=== PATIENT | female | born 1945 | race Caucasian/White ===

== ENCOUNTER → 2021-09-26 13:47 | Outpatient (CLI) | payer MEDICARE, OTHER, SELFPAY ==
--- NOTE | 2021-09-26 13:52 | DI.MG.S_ITS ---
BILATERAL DIGITAL DIAGNOSTIC MAMMOGRAM 3D/2D: 09/26/2021 CLINICAL: Bilateral breast pain. Comparison is made to exams dated: 08/03/2019 mammogram, 06/10/2018 mammogram, and 04/21/2017 mammogram - [facility]. The tissue of both breasts is predominantly fatty. No significant masses, calcifications, or other findings are seen in either breast. There has been no significant interval change. IMPRESSION: NEGATIVE There is no mammographic evidence of malignancy. A 1 year screening mammogram is recommended. This exam was interpreted at Station ID: [id number]. NOTE: For mammograms, a report in lay terms will be sent to the patient. Approximately 15% of breast malignancies will not be visualized mammographically. In the management of a palpable breast mass, a negative mammogram must not discourage biopsy of a clinically suspicious lesion. Electronically Signed By: Harish Cam M.D., jr/yari:09/26/2021 14:26:33 letter sent: Normal Exam ACR BI-RADS Category 1: Negative [id number]
== END ==
PROVIDERS: Referring Provider Student in an Organized Health Care Education/Training Program; Visit Provider Student in an Organized Health Care Education/Training Program
DX: N64.4 Mastodynia (principal)
CPT/HCPCS: 77066; G0279

== ENCOUNTER → 2022-03-18 07:14 | Outpatient (CLI) | payer MEDICARE, OTHER, SELFPAY ==
--- NOTE | 2022-03-18 | DI.RAD.S_ITS ---
PROCEDURE: FL BARIUM SWALLOW INDICATIONS: DYSPHAGIA COMPARISON: None. FINDINGS: Function: There are mild tertiary contraction waves in the distal esophagus. No elicited gastroesophageal reflux. There is normal transit of a calibrated barium tablet through the esophagus into the stomach. Swallowing reflex is normal. No laryngotracheal penetration or aspiration. No Zenker's diverticulum. Mild pooling noted in the right vallecula which is cleared with repeat swallows. Morphology: Air-contrast images demonstrate normal mucosal morphology. Single contrast views show no esophageal strictures, extrinsic mass effects, or diverticula. Limited images of the stomach demonstrate normal appearance. IMPRESSION: 1. Mild distal esophageal dysmotility. 2. No gastroesophageal reflux identified. 3. No esophageal mass or stricture. Dictated by: Nicolasa Mann MD, PhD on 03/18/2022 at 14:31 Approved by: Nicolasa Mann MD, PhD on 03/18/2022 at 14:33
== END ==
PROVIDERS: PCP Student in an Organized Health Care Education/Training Program; Referring Provider Student in an Organized Health Care Education/Training Program; Visit Provider Student in an Organized Health Care Education/Training Program
DX: R13.10 Dysphagia, unspecified (principal); K22.4 Dyskinesia of esophagus
CPT/HCPCS: 74220

== ENCOUNTER 2024-04-13 10:39 | Emergency (ER) | payer MEDICARE, OTHER, SELFPAY ==
[2024-04-13 10:43] VITALS: BP 155/72; PULSE 68; RESP 18; TEMP 36.3; O2SAT 98
--- NOTE | 2024-04-13 11:04 | EKG_ITS ---
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
[2024-04-13 11:09] LABS: Add Manual Diff / Slide Review NO; Basophils Absolute Auto 0 /uL (0-100); Basophils Percent Auto 0.7 % (0-2); Eosinophils Absolute Auto 100 /uL (0-450); Eosinophils Percent Auto 1.9 % (2-4); Hematocrit 34.8 % (36-46); Lymphocytes Absolute Auto 1600 /uL (1100-4500); Lymphocytes Percent Auto 25.4 % (25-40); Mean Corpuscular HGB Conc 34.5 % (30-36); Mean Corpuscular Hemoglobin 30.1 PG (26-34); Mean Corpuscular Volume 87.2 fL (80-100); Monocytes Absolute Auto 500 /uL (0-900); Monocytes Percent Auto 7.4 % (3-14); Neutrophils Absolute Auto 4000 /uL (1500-7000); Neutrophils Percent Auto 64.6 % (50-75); Platelet Count 261 X10^3/uL (150-400); Red Blood Cell Count 3.99 X10^6/uL (4.0-5.2); Red Cell Distribution Width 13.7 % (11.6-14.8); White Blood Cell Count 6.1 X10^3/uL (4.5-11.0)
[2024-04-13 11:27] LABS: Alanine Aminotransferase 15 IU/L (<35); Albumin 4.1 g/dL (3.5-5.0); Albumin Globulin Ratio 1.3 (1.0-2.8); Alkaline Phosphatase 100 U/L (38-126); Aspartate Aminotransferase 19 IU/L (14-36); BUN Creatinine Ratio 14.7 (6-22); Bilirubin Total 0.8 mg/dL (0.2-1.3); Blood Urea Nitrogen 11 mg/dL (7-17); Calcium 8.9 mg/dL (8.4-10.2); Carbon Dioxide 24 mmol/L (22-32); Chloride 104 mmol/L (98-107); Estimated Glomerular Filt Rate > 60 mL/min (>60); Globulin 3.1 g/dL (1.7-4.1); Glucose 184 mg/dL (80-110); HEMOLYSIS < 15 (0-50); Lipase 175 U/L (23-300); Potassium 4.1 mmol/L (3.4-5.1); Sodium 137 mmol/L (137-145); Total Protein 7.2 g/dL (6.3-8.2)
--- NOTE | 2024-04-13 12:53 | ED.ABDPAIN ---
HPI - Abdominal Pain <Jennifer Snyder PA-C - Last Filed: 04/13/24 14:42> General Chief Complaint: Abdominal Pain Stated Complaint: abd pain Time Seen by Provider: 04/13/24 12:52 Source: patient Mode of arrival: Ambulatory History of Present Illness HPI narrative: 78-year-old woman with history of compression fractures to spine, hysterectomy, cholecystectomy presents with concern for abdominal pain. Patient states for the past 6 weeks she has been having pains in her belly that are often a generalized ache in her low belly but she gets sharp pains up high. This has worsened over the past 3 days, generally she has been having pain mostly in the afternoons and getting worse into the evenings that is relieved with lying flat and ?stretching out her belly? but then the last 3 days her pain has been there in the morning when she wakes up and lasting all day long. She has noticed that she gets pain often after eating recently which is new for her and has been having nausea and reduced appetite. She is also noticed that she has been having some urgency with stools intermittently and sometimes feels she has to run to the bathroom-she has had very loose stools at times and a few weeks ago had ?watery stools?. She states sometimes she goes 4 days without a bowel movement and then after that she has a lot of loose stools. Her urgency with stools is not related to eating. It is also not related to her pains. Pain is not relieved with bowel movements. She describes currently a 7/10 pain but notes she has a very high pain tolerance. Her last colonoscopy was 10-12 years ago and she said there was a precancerous polyp found she believes she was recommended for a 10 year follow-up but has not had this done. She has tried Advil for pain at home which has helped some. Related Data Home Medications Medication Instructions Recorded Confirmed [DIABETES] ##0 03/27/17 [HIGH CHOLESTEROL ] ##0 03/27/17 [HTN MEDICATION] ##0 03/27/17 amitriptyline 25 mg tablet 25 mg PO HS ##0 03/27/17 gabapentin 300 mg capsule 300 mg PO TID ##0 03/27/17 (Neurontin) Previous Rx's Medication Instructions Recorded hydrocodone 5 mg-acetaminophen 325 0 tab PO Q6HP PRN #15 tabs 03/27/17 mg tablet ketorolac 10 mg tablet 10 mg PO Q6HP PRN #15 tabs 03/27/17 methocarbamol 500 mg tablet 500 mg PO QIDP PRN #14 tabs 03/27/17 cyclobenzaprine 10 mg tablet 10 mg PO Q8HP PRN #20 tabs 04/03/17 hydrocodone 5 mg-acetaminophen 325 1 - 2 tab PO Q6H PRN #15 tabs 04/03/17 mg tablet ([place]) ketorolac 10 mg tablet 10 mg PO Q8HP PRN #20 tabs 04/03/17 Allergies Allergy/AdvReac Type Severity Reaction Status Date / Time pregabalin [From LYRICA] Allergy Intermediate SWELLING Unverified 01/21/18 12:44 lisinopril [LISINOPRIL] AdvReac Intermediate COUGH Unverified 04/13/24 10:52 Review of Systems <Jennifer Snyder PA-C - Last Filed: 04/13/24 14:42> Review of Systems Narrative: See HPI Patient History <Jennifer Snyder PA-C - Last Filed: 04/13/24 14:42> Social History Smoking Status: Never smoker Smoking Status: Never smoker alcohol intake frequency: a few times a month Substance Use Type: does not use Exam <Jennifer Snyder PA-C - Last Filed: 04/13/24 14:42> Narrative Exam Narrative: GENERAL: [78] year old patient appears stated age. Well-developed patient, in mild distress. HEAD: Atraumatic. Normocephalic. EYES: Pupils equal round and reactive. Extraocular motions intact. No scleral icterus. No injection or drainage. ENT: Nose without bleeding, purulent drainage. Throat without erythema. Airway patent. NECK: Trachea midline. CARDIOVASCULAR: Regular rate and rhythm without murmurs, gallops, or rubs. RESPIRATORY: Clear to auscultation. Breath sounds equal bilaterally. No wheezes, rales, or rhonchi. GASTROINTESTINAL: Abdomen soft, there is epigastric tenderness and left upper quadrant tenderness there is mild generalized abdominal tenderness abdomen is nondistended, no CVA tenderness. EXTREMITIES: Moving all extremities, normal gait BACK: Nontender without deformity or crepitance. No flank tenderness. NEURO: AOx3. SKIN: No rash or erythema of visible areas Initial Vital Signs Initial Vital Signs: Vital Signs Temperature 97.3 F L 04/13/24 10:43 Pulse Rate 68 04/13/24 10:43 Respiratory Rate 18 04/13/24 10:43 Blood Pressure 155/72 H 04/13/24 10:43 Pulse Oximetry 98 04/13/24 10:43 Oxygen Delivery Method Room Air 04/13/24 10:43 <Nuria Zapata MD - Last Filed: 04/13/24 18:37> Initial Vital Signs Initial Vital Signs: Vital Signs Temperature 97.3 F L 04/13/24 10:43 Pulse Rate 68 04/13/24 10:43 Respiratory Rate 18 04/13/24 10:43 Blood Pressure 155/72 H 04/13/24 10:43 Pulse Oximetry 98 04/13/24 10:43 Oxygen Delivery Method Room Air 04/13/24 10:43 Course <Jennifer Snyder PA-C - Last Filed: 04/13/24 14:42> Orders Ordered: ED Orders 04/13/24 10:48 EKG-12 Lead Stat 04/13/24 11:00 Complete Blood Count AUTO DIFF Stat Comprehensive Metabolic Panel Stat Lipase Stat 04/13/24 14:00 CT abdomen pelvis w con Stat Discontinued Medications Sodium Chloride (Normal Saline 0.9%) 1,000 mls @ 1,000 mls/hr IV BOLUS ONE Stop: 04/13/24 14:25 Last Admin: 04/13/24 14:28 Dose: Not Given Documented By: SB Ondansetron HCl (Ondansetron 4 Mg/2 Ml Inj) 4 mg IV NOW PRN PRN Reason: Nausea And Vomiting Ondansetron HCl (Ondansetron 4 Mg Odt) 4 mg PO NOW PRN PRN Reason: Nausea And Vomiting Vital Signs Vital signs: Vital Signs - 8 hr 04/13/24 10:43 04/13/24 14:24 Temperature 97.3 F L Pulse Rate 68 66 Respiratory Rate 18 18 Blood Pressure 155/72 H 187/80 H Pulse Oximetry 98 98 Oxygen Delivery Method Room Air Room Air <Nuria Zapata MD - Last Filed: 04/13/24 18:37> Orders Ordered: ED Orders 04/13/24 10:48 EKG-12 Lead Stat 04/13/24 11:00 Complete Blood Count AUTO DIFF Stat Comprehensive Metabolic Panel Stat Lipase Stat 04/13/24 14:00 CT abdomen pelvis w con Stat Discontinued Medications Sodium Chloride (Normal Saline 0.9%) 1,000 mls @ 1,000 mls/hr IV BOLUS ONE Stop: 04/13/24 14:25 Last Admin: 04/13/24 14:28 Dose: Not Given Documented By: LACY Ondansetron HCl (Ondansetron 4 Mg/2 Ml Inj) 4 mg IV NOW PRN PRN Reason: Nausea And Vomiting Ondansetron HCl (Ondansetron 4 Mg Odt) 4 mg PO NOW PRN PRN Reason: Nausea And Vomiting Vital Signs Vital signs: Vital Signs - 8 hr 04/13/24 10:43 04/13/24 14:24 Temperature 97.3 F L Pulse Rate 68 66 Respiratory Rate 18 18 Blood Pressure 155/72 H 187/80 H Pulse Oximetry 98 98 Oxygen Delivery Method Room Air Room Air MDM - Abdominal Pain <Jennifer Snyder PA-C - Last Filed: 04/13/24 14:42> Differential Diagnosis Differential diagnosis: Likely abdominal pain, acute appendicitis, diverticulitis, pancreatitis, small bowel obstruction and other (CA, GERD) Medical Records Attestation: I reviewed the patient's medical records. Lab Data Attestation: I reviewed the patient's lab results. 04/13/24 11:00 04/13/24 11:00 Labs: Lab Results 04/13/24 Range/Units 11:00 WBC 6.1 (4.5-11.0) X10^3/uL RBC 3.99 L (4.0-5.2) X10^6/uL Hgb 12.0 (12.0-16.0) g/dL Hct 34.8 L (36-46) % MCV 87.2 (80-100) fL MCH 30.1 (26-34) PG MCHC 34.5 (30-36) % RDW 13.7 (11.6-14.8) % Plt Count 261 (150-400) X10^3/uL Neut % (Auto) 64.6 (50-75) % Lymph % (Auto) 25.4 (25-40) % [place] % (Auto) 7.4 (3-14) % Eos % (Auto) 1.9 L (2-4) % Baso % (Auto) 0.7 (0-2) % Neut # (Auto) 4000 (3612-1071) /uL Lymph # (Auto) 1600 (2255-3683) /uL [place] # (Auto) 500 (0-900) /uL Eos # (Auto) 100 (0-450) /uL Baso # (Auto) 0 (0-100) /uL Sodium 137 (137-145) mmol/L Potassium 4.1 (3.4-5.1) mmol/L Chloride 104 (98-107) mmol/L Carbon Dioxide 24 (22-32) mmol/L BUN 11 (7-17) mg/dL Creatinine 0.75 (0.52-1.04) mg/dL Estimated GFR > 60 (>60) mL/min BUN/Creatinine Ratio 14.7 (6-22) Glucose 184 H (80-110) mg/dL Calcium 8.9 (8.4-10.2) mg/dL Total Bilirubin 0.8 (0.2-1.3) mg/dL AST 19 (14-36) IU/L ALT 15 (<35) IU/L Alkaline Phosphatase 100 (38-126) U/L Total Protein 7.2 (6.3-8.2) g/dL Albumin 4.1 (3.5-5.0) g/dL Globulin 3.1 (1.7-4.1) g/dL Albumin/Globulin Ratio 1.3 (1.0-2.8) Lipase 175 (23-300) U/L Point of care testing: Urine Dip Bedside Urine Glucose Negative Bedside Urine Bilirubin - Negative Bedside Urine Ketone - Negative Urine Specific [place] 1.020 Bedside Urine Occult Blood - Negative Bedside Urine pH 5.5 Bedside Urine Protein - Negative Bedside Urine Urobilinogen - Negative Bedside Urine Nitrite - Negative Bedside Urine Leukocytes - Negative Esterase Imaging Data CT scan - abdomen/pelvis: My Impression: Agree with Radiology interpretation Radiologist's Impression: [address] [address] [address] Scan Report Signed Patient: Kylie Alonso MR#: [id number] : 1945 Acct:[id number] Age/Sex: 78 / F Date of Service: 04/13/24 Loc: ED Accession Number: [id number] Procedure: CT abdomen pelvis w con Ordering Provider: Jennifer Snyder P.A-C PROCEDURE: CT ABDOMEN PELVIS W CON INDICATIONS: low abd pain radiating/nausea/reduced appetite TECHNIQUE: After the administration of intravenous contrast, axial sections acquired from the lung bases to the pubic symphysis. Coronal and sagittal reformats were performed. For radiation dose reduction, the following was used: automated exposure control, adjustment of mA and/or kV according to patient size. COMPARISON: None. FINDINGS: Image quality: Diagnostic. Lower Chest: No significant findings. ABDOMEN: Liver: No solid mass. Gallbladder: Gallbladder is absent. Biliary ducts: No biliary dilation. Pancreas: No ductal dilation. Spleen: Size is within normal limits. Adrenal Glands: No adrenal nodules. Kidneys and Ureters: No hydronephrosis. No solid mass. No complex renal cystic lesion which requires follow up. Stomach and Bowel: Normal colonic caliber, without significant wall thickening. Normal appendix. Colonic diverticulosis without evidence of diverticulitis. Peritoneum: No abnormal intraperitoneal fluid. No free air. Ventral Wall: No significant ventral hernia. Abdominal Nodes: No retroperitoneal or mesenteric adenopathy by size criteria. Vessels: Aorta and inferior vena cava are normal in size. PELVIS: Pelvic Organs: Hysterectomy. Bladder: No bladder wall thickening, accounting for underdistention. Pelvic Nodes: No enlarged lymph nodes. Miscellaneous: No inguinal hernias are seen. Bones: No aggressive osseous abnormality . Degenerative disc disease of the lumbar spine. Kyphoplasty present at T10. Moderate to severe spinal canal narrowing at L4-5. IMPRESSION: No acute abnormality. Normal appendix. Colonic diverticulosis without evidence of diverticulitis. No nephrolithiasis. Moderate to severe spinal canal narrowing at L4-5 due to degenerative change. Dictated by: Live Howard M.D. on 04/13/2024 at 13:37 Approved by: Live Howard M.D. on 04/13/2024 at 13:42 ECG Data Interpretation: Sinus rhythm heart rate 70 right bundle branch block no ectopy or ST changes MDM Narrative Medical decision making narrative: This is a 78-year-old woman who has had previous cholecystectomy and hysterectomy with 6 weeks of generalized abdominal pains that has been worsening in the last 3 days that may be associated with eating and has also had some intermittent looser stools and urgency. She does have abdominal tenderness on exam over the pancreas and epigastrium. Her labs including lipase, liver enzymes and urine, are unremarkable, but CT scan is pursued for further evaluation given her 7/10 pain and worsening over the last 3 days. This shows no acute intra-abdominal surgical pathology or signs of infection she does have diverticulosis without diverticulitis. Patient did have an EKG performed in triage however no cardiac labs were obtained, based on her symptoms and history I think a cardiovascular etiology for her symptoms is very unlikely. Patient is advised to follow up closely with her primary care provider and consider seeing General surgery soon as an outpatient for further evaluation for possible colonoscopy or upper endoscopy. She will continue her PPI as prescribed. She is encouraged to keep a food diary as well. She is also advised to talk to her primary care provider about possibly obtaining a GI panel/stool studies as she was unable to provide a stool sample today in the ER for us and this is 1 potential cause for her symptoms. Patient declined pain medications or nausea medications in the emergency department today, she declines prescription for nausea medicine as she states she still has some at home from an knee surgery this winter and avoids taking meds in general if they are not prescribed/absolutely necessary. Patient was counseled to be cautious about using Advil and NSAIDs as this could irritate her stomach lining/esophagus. Return precautions provided, follow-up plan discussed, all questions answered. <Nuria Zapata MD - Last Filed: 04/13/24 18:37> Lab Data Labs: Lab Results 04/13/24 Range/Units 11:00 WBC 6.1 (4.5-11.0) X10^3/uL RBC 3.99 L (4.0-5.2) X10^6/uL Hgb 12.0 (12.0-16.0) g/dL Hct 34.8 L (36-46) % MCV 87.2 (80-100) fL MCH 30.1 (26-34) PG MCHC 34.5 (30-36) % RDW 13.7 (11.6-14.8) % Plt Count 261 (150-400) X10^3/uL Neut % (Auto) 64.6 (50-75) % Lymph % (Auto) 25.4 (25-40) % [place] % (Auto) 7.4 (3-14) % Eos % (Auto) 1.9 L (2-4) % Baso % (Auto) 0.7 (0-2) % Neut # (Auto) 4000 (3172-5938) /uL Lymph # (Auto) 1600 (0013-9893) /uL [place] # (Auto) 500 (0-900) /uL Eos # (Auto) 100 (0-450) /uL Baso # (Auto) 0 (0-100) /uL Sodium 137 (137-145) mmol/L Potassium 4.1 (3.4-5.1) mmol/L Chloride 104 (98-107) mmol/L Carbon Dioxide 24 (22-32) mmol/L BUN 11 (7-17) mg/dL Creatinine 0.75 (0.52-1.04) mg/dL Estimated GFR > 60 (>60) mL/min BUN/Creatinine Ratio 14.7 (6-22) Glucose 184 H (80-110) mg/dL Calcium 8.9 (8.4-10.2) mg/dL Total Bilirubin 0.8 (0.2-1.3) mg/dL AST 19 (14-36) IU/L ALT 15 (<35) IU/L Alkaline Phosphatase 100 (38-126) U/L Total Protein 7.2 (6.3-8.2) g/dL Albumin 4.1 (3.5-5.0) g/dL Globulin 3.1 (1.7-4.1) g/dL Albumin/Globulin Ratio 1.3 (1.0-2.8) Lipase 175 (23-300) U/L Point of care testing: Urine Dip Bedside Urine Glucose Negative Bedside Urine Bilirubin - Negative Bedside Urine Ketone - Negative Urine Specific [place] 1.020 Bedside Urine Occult Blood - Negative Bedside Urine pH 5.5 Bedside Urine Protein - Negative Bedside Urine Urobilinogen - Negative Bedside Urine Nitrite - Negative Bedside Urine Leukocytes - Negative Esterase Discharge Plan Departure Patient Disposition: Home Clinical Impression: Change in stool habits Abdominal pain Qualifiers: Abdominal location: generalized Qualified Code(s): R10.84 - Generalized abdominal pain Activity Restrictions/Additional Instructions: *You have been diagnosed with [abdominal pain, change in stool habits] *What to do: *Please continue to take your regular medications as directed. [ ] New medication prescriptions sent to your pharmacy: [ ] [ ] New medication written as a paper prescription [ X] No new medications given *Please follow up with your primary care provider in 2-3 days, call for an appointment. Let them know you were seen in the Emergency Department and that we ask that you be seen in follow up. We will electronically transmit a record of today's note if your PCP is in our system. We did labs today to evaluate your symptoms and your liver enzymes, pancreas lab, blood counts, urine labs were all looking good with no signs of infection or abnormality. We also did a CT scan to evaluate for possible causes of your pain this also looked good today you do have diverticulosis without diverticulitis (no infection or inflammation currently) but otherwise no definite cause for your symptoms. I would recommend you follow-up with your primary care provider as we discussed, and work on getting in to see General surgery possibly for a colonoscopy or upper scope depending on their recommendations. You may want to have a stool study done as well as you are unable to give a stool sample today in the ER and you had a change in your stool habits, it is possible that you have an infectious process or something in your stool that is causing your symptoms. Please be thoughtful about your diet and push fluids especially for the next 24-48 hours as you had a CT scan with contrast today which can be somewhat hard on the kidneys. I hope you feel better soon. *If you do not have a primary care provider please contact the [facility] Resource line at [phone]. They will ask some questions about your medical history and help get you set up with a doctor in the community. *Return to Emergency Department if you should have any new, worsening or concerning symptoms, such as [fever greater than 101 F, shaking chills, worsening pain, persistent vomiting or other bothersome symptoms] Prescriptions: No Action amitriptyline 25 MG tablet 25 mg PO HS Qty: 0 gabapentin [Neurontin] 300 MG capsule 300 mg PO TID Qty: 0 [DIABETES] Qty: 0 [HIGH CHOLESTEROL ] Qty: 0 [HTN MEDICATION] Qty: 0 methocarbamol 500 MG tablet 500 mg PO QIDP PRNQty: 14 0RF hydrocodone-acetaminophen 5 MG/325 MG tablet 0 tab PO Q6HP PRNQty: 15 0RF ketorolac 10 MG tablet 10 mg PO Q6HP PRNQty: 15 0RF cyclobenzaprine 10 MG tablet 10 mg PO Q8HP PRNQty: 20 0RF hydrocodone-acetaminophen [[place]] 5 MG/325 MG tablet 1 - 2 tab PO Q6H PRNQty: 15 0RF ketorolac 10 MG tablet 10 mg PO Q8HP PRNQty: 20 0RF Referrals: Chica Rae MD [Physician] - (abd pain 6 wk, worsening, normal labs /CT Hx precancer on colonoscopy 10-12 yr ago) Mercy Curtis PA-C [Primary Care Provider] - Stand Alone Forms: Patient Portal/API ED Sign-out <Nuria Zapata MD - Last Filed: 04/13/24 18:37> Cosign ED Attending Germaniaature Attestation: I was immediately available in the department for consultation throughout this patient's visit. Nuria Zapata MD
--- NOTE | 2024-04-13 14:00 | DI.CT.S_ITS ---
PROCEDURE: CT ABDOMEN PELVIS W CON INDICATIONS: low abd pain radiating/nausea/reduced appetite TECHNIQUE: After the administration of intravenous contrast, axial sections acquired from the lung bases to the pubic symphysis. Coronal and sagittal reformats were performed. For radiation dose reduction, the following was used: automated exposure control, adjustment of mA and/or kV according to patient size. COMPARISON: None. FINDINGS: Image quality: Diagnostic. Lower Chest: No significant findings. ABDOMEN: Liver: No solid mass. Gallbladder: Gallbladder is absent. Biliary ducts: No biliary dilation. Pancreas: No ductal dilation. Spleen: Size is within normal limits. Adrenal Glands: No adrenal nodules. Kidneys and Ureters: No hydronephrosis. No solid mass. No complex renal cystic lesion which requires follow up. Stomach and Bowel: Normal colonic caliber, without significant wall thickening. Normal appendix. Colonic diverticulosis without evidence of diverticulitis. Peritoneum: No abnormal intraperitoneal fluid. No free air. Ventral Wall: No significant ventral hernia. Abdominal Nodes: No retroperitoneal or mesenteric adenopathy by size criteria. Vessels: Aorta and inferior vena cava are normal in size. PELVIS: Pelvic Organs: Hysterectomy. Bladder: No bladder wall thickening, accounting for underdistention. Pelvic Nodes: No enlarged lymph nodes. Miscellaneous: No inguinal hernias are seen. Bones: No aggressive osseous abnormality . Degenerative disc disease of the lumbar spine. Kyphoplasty present at T10. Moderate to severe spinal canal narrowing at L4-5. IMPRESSION: No acute abnormality. Normal appendix. Colonic diverticulosis without evidence of diverticulitis. No nephrolithiasis. Moderate to severe spinal canal narrowing at L4-5 due to degenerative change. Dictated by: Live Howard M.D. on 04/13/2024 at 13:37 Approved by: Live Howard M.D. on 04/13/2024 at 13:42
[2024-04-13 14:24] VITALS: BP 187/80; PULSE 66; RESP 18; O2SAT 98
== END 2024-04-13 15:17 | disposition home or self-care (01) ==
PROVIDERS: Emergency Medicine; Emergency Provider Student in an Organized Health Care Education/Training Program; PCP Student in an Organized Health Care Education/Training Program
DX: R10.84 Generalized abdominal pain (principal); R19.4 Change in bowel habit
CPT/HCPCS: 36415; 74177; 80053; 81003; 83690; 85025; 93005; 99284; Q9967

== ENCOUNTER → 2024-05-11 12:51 | Outpatient (CLI) | payer MEDICARE, OTHER, SELFPAY | PROVIDERS: PCP Student in an Organized Health Care Education/Training Program; Referring Provider Physician Assistant; Visit Provider Physician Assistant | DX: R19.7 Diarrhea, unspecified (principal) | CPT/HCPCS: 82274; 87338 ==

== ENCOUNTER 2024-06-29 16:48 | Emergency (ER) | payer MEDICARE, OTHER, SELFPAY ==
[2024-06-29] VITALS (13 sets, daily range): BP systolic 186–236; BP diastolic 86–144; PULSE 78–96; RESP 16–23; TEMP 36.6; O2SAT 95–99; BMI 29.6
--- NOTE | 2024-06-29 17:03 | DI.RAD.S_ITS ---
PROCEDURE: XR CHEST 1V INDICATIONS: chest pain TECHNIQUE: One view of the chest was acquired. COMPARISON: None. FINDINGS: Surgical changes and devices: None. Lungs and pleura: Lungs are clear. No pleural effusions or pneumothorax. Peribronchial cuffing. Mediastinum: Mediastinal contours appear normal. Heart size is normal. Bones and chest wall: No suspicious bony lesions. Overlying soft tissues appear unremarkable. Vertebral augmentation. IMPRESSION: Peribronchial cuffing, typically indicating infectious or inflammatory bronchitis. Dictated by: Live Howard M.D. on 06/29/2024 at 17:32 Approved by: Live Howard M.D. on 06/29/2024 at 17:33
--- NOTE | 2024-06-29 17:03 | EKG_ITS ---
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
[2024-06-29 17:21] LABS: INR 0.9 (0.9-1.3); Prothrombin Time 10.8 SECONDS (9.4-12.5)
[2024-06-29 17:23] LABS: Add Manual Diff / Slide Review NO; Basophils Absolute Auto 100 /uL (0-100); Basophils Percent Auto 1.4 % (0-2); Eosinophils Absolute Auto 100 /uL (0-450); Eosinophils Percent Auto 1.4 % (2-4); Hematocrit 36.1 % (36-46); Hemoglobin 12.4 g/dL (12.0-16.0); Lymphocytes Absolute Auto 1900 /uL (1100-4500); Lymphocytes Percent Auto 30.4 % (25-40); Mean Corpuscular HGB Conc 34.4 % (30-36); Mean Corpuscular Hemoglobin 30.1 PG (26-34); Mean Corpuscular Volume 87.5 fL (80-100); Monocytes Absolute Auto 400 /uL (0-900); Monocytes Percent Auto 5.8 % (3-14); Neutrophils Absolute Auto 3800 /uL (1500-7000); Platelet Count 248 X10^3/uL (150-400); Red Blood Cell Count 4.13 X10^6/uL (4.0-5.2); Red Cell Distribution Width 13.4 % (11.6-14.8); White Blood Cell Count 6.3 X10^3/uL (4.5-11.0)
[2024-06-29 17:24] LABS: PTT Partial Thromboplastin Tim 28 SECONDS (25.1-36.5)
[2024-06-29 17:32] LABS: Alanine Aminotransferase 19 IU/L (<35); Albumin Globulin Ratio 1.3 (1.0-2.8); Alkaline Phosphatase 108 U/L (38-126); Aspartate Aminotransferase 22 IU/L (14-36); BUN Creatinine Ratio 12.5 (6-22); Bilirubin Total 0.6 mg/dL (0.2-1.3); Blood Urea Nitrogen 9 mg/dL (7-17); Calcium 9.2 mg/dL (8.4-10.2); Carbon Dioxide 26 mmol/L (22-32); Chloride 99 mmol/L (98-107); Creatine Kinase 53 U/L (30-135); Estimated Glomerular Filt Rate > 60 mL/min (>60); Globulin 3.1 g/dL (1.7-4.1); Glucose 233 mg/dL (80-110); HEMOLYSIS < 15 (0-50); Lipase 196 U/L (23-300); Magnesium 1.5 mg/dL (1.6-2.3); Potassium 3.6 mmol/L (3.4-5.1); Sodium 134 mmol/L (137-145); Total Protein 7.1 g/dL (6.3-8.2)
[2024-06-29 17:44] LABS: NT-proBNP (BNP-Adult 18+) < 20 pg/mL (<450); Troponin I < 0.012 ng/mL (0.01-0.034)
--- NOTE | 2024-06-29 17:58 | PC.NURSE ---
pt came to ED today because she has been experiencing HTN for the past month. Pt states that pcp changed her medication from losartan 50mg to valsartan 180mg approximately one month ago and he blood pressure has been high ever since. Pt states that losartan was no longer controlling HTN and pcp decided to change medications. C/o dizziness, lightheaded and weakness. Pt is a&ox4. Denies sob & cp.
--- NOTE | 2024-06-29 18:28 | ED_ITS ---
HPI - General Adult General Chief complaint: Hypertension Stated complaint: states high blood pressure Time Seen by Provider: 06/29/24 17:56 Source: patient Mode of arrival: Ambulatory History of Present Illness HPI narrative: 78-year-old female with history of upe-[id number]-ihwddpksl diabetes, hypertension presents by EMS from home for elevated blood pressure readings for the last several weeks. Patient states that she is on 160 mg daily of valsartan, but over the last several weeks she was not been able to get her blood pressure below 180 systolic. She states that she occasionally feels like her cheeks we will flush and her eyes burn. Today the patient's blood pressure was over systolic 200. She tried calling her doctor's office, but she was referred to the emergency department. Patient denies chest pain, shortness of breath, leg swelling, worst headache of life. Related Data Home Medications Medication Instructions Recorded Confirmed [DIABETES] ##0 03/27/17 [HIGH CHOLESTEROL ] ##0 03/27/17 [HTN MEDICATION] ##0 03/27/17 amitriptyline 25 mg tablet 25 mg PO HS ##0 03/27/17 gabapentin 300 mg capsule 300 mg PO TID ##0 03/27/17 (Neurontin) Previous Rx's Medication Instructions Recorded hydrocodone 5 mg-acetaminophen 325 0 tab PO Q6HP PRN #15 tabs 03/27/17 mg tablet ketorolac 10 mg tablet 10 mg PO Q6HP PRN #15 tabs 03/27/17 methocarbamol 500 mg tablet 500 mg PO QIDP PRN #14 tabs 03/27/17 cyclobenzaprine 10 mg tablet 10 mg PO Q8HP PRN #20 tabs 04/03/17 hydrocodone 5 mg-acetaminophen 325 1 - 2 tab PO Q6H PRN #15 tabs 04/03/17 mg tablet ([place]) ketorolac 10 mg tablet 10 mg PO Q8HP PRN #20 tabs 04/03/17 clonidine HCl 0.1 mg tablet 0.1 mg PO TID PRN hypertensive 06/29/24 emergency #30 tabs Allergies Allergy/AdvReac Type Severity Reaction Status Date / Time pregabalin [From LYRICA] Allergy Intermediate SWELLING Unverified 01/21/18 12:44 lisinopril [LISINOPRIL] AdvReac Intermediate COUGH Unverified 04/13/24 10:52 Patient History Social History Smoking Status: Never smoker Smoking Status: Never smoker alcohol intake frequency: a few times a month Substance Use Type: does not use Exam Initial Vital Signs Initial Vital Signs: Vital Signs Temperature 97.8 F 06/29/24 16:50 Pulse Rate 78 06/29/24 16:50 Respiratory Rate 18 06/29/24 16:50 Blood Pressure 229/102 H 06/29/24 16:50 Pulse Oximetry 98 06/29/24 16:50 Oxygen Delivery Method Room Air 06/29/24 16:50 Const: Awake, alert, no acute distress, nontoxic appearing Cardiac: regular rate, regular rhythm RESP: unlabored, clear bilaterally, no wheezing GI: Soft, nontender, nondistended, no rebound, no guarding MSK: Atraumatic, full range of motion, pulses equal Skin: Warm, Dry, intact, no rashes Neuro: AO x3, CN II-XII grossly intact, moves all extremities Course Orders Ordered: ED Orders 06/29/24 17:00 Complete Blood Count AUTO DIFF Stat Comprehensive Metabolic Panel Stat Lipase Stat Magnesium Stat NT-proBNP (BNP-Adult 18+) Stat PTT Partial Thromboplastin Aki Stat Prothrombin Time INR Stat Troponin & CK Cardiac Panel Stat 06/29/24 17:03 XR chest 1V Stat EKG-12 Lead Stat Discontinued Medications Clonidine HCl (Clonidine 0.1 Mg Tablet) 0.1 mg PO NOW ONE Stop: 06/29/24 19:04 Last Admin: 06/29/24 19:08 Dose: 0.1 mg Documented By: MPO Vital Signs Vital signs: Vital Signs - 8 hr 06/29/24 16:50 06/29/24 16:54 06/29/24 16:55 Temperature 97.8 F Pulse Rate 78 88 Respiratory Rate 18 Blood Pressure 229/102 H Pulse Oximetry 98 99 96 Oxygen Delivery Method Room Air 06/29/24 16:55 06/29/24 16:59 06/29/24 16:59 Temperature Pulse Rate 82 Respiratory Rate 16 Blood Pressure 229/102 H 225/98 H Pulse Oximetry 97 Oxygen Delivery Method 06/29/24 17:00 06/29/24 17:01 06/29/24 17:01 Temperature Pulse Rate 84 85 Respiratory Rate 20 19 Blood Pressure 228/107 H Pulse Oximetry 97 98 Oxygen Delivery Method 06/29/24 17:30 06/29/24 17:31 06/29/24 17:31 Temperature Pulse Rate 88 90 Respiratory Rate 22 23 Blood Pressure 236/103 H Pulse Oximetry 97 95 Oxygen Delivery Method 06/29/24 17:55 06/29/24 17:55 06/29/24 18:00 Temperature Pulse Rate 94 H Respiratory Rate 23 Blood Pressure 212/144 H 200/95 H Pulse Oximetry 98 Oxygen Delivery Method 06/29/24 18:00 06/29/24 18:30 06/29/24 18:30 Temperature Pulse Rate 96 H 94 H Respiratory Rate 20 20 Blood Pressure 210/95 H Pulse Oximetry 95 95 Oxygen Delivery Method 06/29/24 19:00 06/29/24 19:00 06/29/24 19:08 Temperature Pulse Rate 90 94 H Respiratory Rate 18 Blood Pressure 186/86 H 186/86 H Pulse Oximetry 96 Oxygen Delivery Method Medical Decision Making Lab Data 06/29/24 17:00 06/29/24 17:00 Labs: Lab Results 06/29/24 Range/Units 17:00 WBC 6.3 (4.5-11.0) X10^3/uL RBC 4.13 (4.0-5.2) X10^6/uL Hgb 12.4 (12.0-16.0) g/dL Hct 36.1 (36-46) % MCV 87.5 (80-100) fL MCH 30.1 (26-34) PG MCHC 34.4 (30-36) % RDW 13.4 (11.6-14.8) % Plt Count 248 (150-400) X10^3/uL Neut % (Auto) 61.0 (50-75) % Lymph % (Auto) 30.4 (25-40) % [place] % (Auto) 5.8 (3-14) % Eos % (Auto) 1.4 L (2-4) % Baso % (Auto) 1.4 (0-2) % Neut # (Auto) 3800 (3419-5106) /uL Lymph # (Auto) 1900 (8003-8072) /uL [place] # (Auto) 400 (0-900) /uL Eos # (Auto) 100 (0-450) /uL Baso # (Auto) 100 (0-100) /uL PT 10.8 (9.4-12.5) SECONDS INR 0.9 (0.9-1.3) APTT 28 (25.1-36.5) SECONDS Sodium 134 L (137-145) mmol/L Potassium 3.6 (3.4-5.1) mmol/L Chloride 99 (98-107) mmol/L Carbon Dioxide 26 (22-32) mmol/L BUN 9 (7-17) mg/dL Creatinine 0.72 (0.52-1.04) mg/dL Estimated GFR > 60 (>60) mL/min BUN/Creatinine Ratio 12.5 (6-22) Glucose 233 H (80-110) mg/dL Calcium 9.2 (8.4-10.2) mg/dL Magnesium 1.5 L (1.6-2.3) mg/dL Total Bilirubin 0.6 (0.2-1.3) mg/dL AST 22 (14-36) IU/L ALT 19 (<35) IU/L Alkaline Phosphatase 108 (38-126) U/L Total Creatine Kinase 53 (30-135) U/L Troponin I < 0.012 (0.01-0.034) ng/mL NT-Pro-B Natriuret Pep < 20 (<450) pg/mL Total Protein 7.1 (6.3-8.2) g/dL Albumin 4.0 (3.5-5.0) g/dL Globulin 3.1 (1.7-4.1) g/dL Albumin/Globulin Ratio 1.3 (1.0-2.8) Lipase 196 (23-300) U/L Imaging Data Chest x-ray: Radiologist's Impression: PROCEDURE: XR CHEST 1V INDICATIONS: chest pain TECHNIQUE: One view of the chest was acquired. COMPARISON: None. FINDINGS: Surgical changes and devices: None. Lungs and pleura: Lungs are clear. No pleural effusions or pneumothorax. Peribronchial cuffing. Mediastinum: Mediastinal contours appear normal. Heart size is normal. Bones and chest wall: No suspicious bony lesions. Overlying soft tissues appear unremarkable. Vertebral augmentation. IMPRESSION: Peribronchial cuffing, typically indicating infectious or inflammatory bronchitis. Dictated by: Live Howard M.D. on 06/29/2024 at 17:32 Approved by: Live Howard M.D. on 06/29/2024 at 17:33 ECG Data Interpretation: Normal sinus rhythm at 89 beats per minute. Right bundle-branch block, normal IN, no ST T wave changes MDM Narrative Medical decision making narrative: Asymptomatic hypertension. EKG normal sinus rhythm, right bundle-branch block, no ischemic findings. Patient states that her right bundle brittny block is a known finding to her and she has previously seen cardiology in her hometown in [place]. Physical exam is unremarkable. Laboratory work ordered in triage reviewed, mildly elevated blood glucose, however no signs of end-organ damage. Patient states that she did have of the nail shake earlier in the day which is likely why she has an elevated glucose reading. Plan to increase patient's valsartan from once daily to twice daily. She was also given a as needed clonidine prescription if she can not get her blood pressure down. Signs and symptoms to look out for to return to the emergency department discussed with the patient and her daughter at bedside. Discharge Plan Departure Patient Disposition: Home Clinical Impression: Hypertension Instructions: DI for High Blood Pressure Activity Restrictions/Additional Instructions: Your blood sugar today was 212, your other laboratory work today is normal. Increase your valsartan to 160 mg twice daily. In addition, and ?as needed? medication has been sent to your pharmacy. You may take this up to 3 times daily if your blood pressure is persistently over 180 systolic. Make sure that you follow up with your primary care doctor. Prescriptions: New clonidine HCl 0.1 mg tablet 0.1 mg PO TID PRN (Reason: hypertensive emergency) Qty: 30 0RF No Action amitriptyline 25 MG tablet 25 mg PO HS Qty: 0 gabapentin [Neurontin] 300 MG capsule 300 mg PO TID Qty: 0 [DIABETES] Qty: 0 [HIGH CHOLESTEROL ] Qty: 0 [HTN MEDICATION] Qty: 0 methocarbamol 500 MG tablet 500 mg PO QIDP PRNQty: 14 0RF hydrocodone-acetaminophen 5 MG/325 MG tablet 0 tab PO Q6HP PRNQty: 15 0RF ketorolac 10 MG tablet 10 mg PO Q6HP PRNQty: 15 0RF cyclobenzaprine 10 MG tablet 10 mg PO Q8HP PRNQty: 20 0RF hydrocodone-acetaminophen [[place]] 5 MG/325 MG tablet 1 - 2 tab PO Q6H PRNQty: 15 0RF ketorolac 10 MG tablet 10 mg PO Q8HP PRNQty: 20 0RF Referrals: Mercy Curits PA-C [Primary Care Provider] - Stand Alone Forms: Patient Portal/API
[2024-06-29] MEDS: cloNIDine 0.1 MG TABLET PO (19:08)
== END 2024-06-29 19:15 | disposition home or self-care (01) ==
PROVIDERS: Emergency Medicine; Emergency Provider Emergency Medicine; PCP Student in an Organized Health Care Education/Training Program
DX: I10 Essential (primary) hypertension (principal); R07.9 Chest pain, unspecified; I45.10 Unspecified right bundle-branch block
CPT/HCPCS: 36415; 71045; 80053; 82550; 83690; 83735; 83880; 84484; 85025; 85610; 85730; 93005; 99284

== ENCOUNTER → 2025-04-20 13:40 | Outpatient (CLI) | payer MEDICARE, OTHER, SELFPAY ==
--- NOTE | 2025-04-20 14:07 | EKG_ITS ---
[address] [address] Test Date: 2025-04-20 Pat Name: Kylie Alonso Department: Room: Gender: Female Nurse Esthetician: KATHIE : 1945 Requested By: Order Number: [id number] Reading MD: Anthony Correa MD Measurements Intervals [place] Rate: 60 P: 22 MS: 194 QRS: -2 QRSD: 140 T: 13 QT: 464 QTc: 464 Interpretive Statements Normal sinus rhythm Right bundle branch block NO SIGNIFICANT CHANGE FROM PRIOR TRACING Electronically Signed On 04-21-2025 10:48:53 PDT by Anthony Correa MD
[2025-04-20 14:46] LABS: Add Manual Diff / Slide Review NO; Hematocrit 32.3 % (36-46); Hemoglobin 11.4 g/dL (12.0-16.0); Lymphocytes Absolute Auto 2000 /uL (1100-4500); Mean Corpuscular HGB Conc 35.4 % (30-36); Mean Corpuscular Hemoglobin 30.6 PG (26-34); Mean Corpuscular Volume 86.6 fL (80-100); Platelet Count 300 X10^3/uL (150-400)
[2025-04-20 14:48] LABS: Appearance Urine UA CLEAR; Bilirubin Urine UA NEGATIVE (NEGATIVE); Color Urine UA YELLOW; Glucose Urine UA NEGATIVE (Negative); Ketones Urine UA TRACE (NEGATIVE); Leukocyte Esterase Urine UA TRACE (NEGATIVE); Nitrite Urine UA NEGATIVE (Negative); Occult Blood Urine UA NEGATIVE (Negative); Protein Urine UA NEGATIVE (Negative); Specific Gravity Urine UA 1.015 (1.000-1.035); Urobilinogen Urine UA 0.2 E.U./dL (0.2)
[2025-04-20 14:54] LABS: Hemoglobin A1C% w Est Avg Glu 7.4 % (4.0-6.0); pH Urine UA 5.5 (4.5-8.0)
[2025-04-20 15:10] LABS: Culture Indicated Urine Specimen Cultured
[2025-04-20 15:28] LABS: Blood Urea Nitrogen 14 mg/dL (7-17); Calcium 9.6 mg/dL (8.4-10.2); Carbon Dioxide 28 mmol/L (22-32); Chloride 91 mmol/L (98-107); Estimated Glomerular Filt Rate 43 mL/min (>60); Glucose 126 mg/dL (70-99); HEMOLYSIS < 15 (0-50); Potassium 4.0 mmol/L (3.4-5.1); Sodium 130 mmol/L (137-145)
== END ==
PROVIDERS: PCP Student in an Organized Health Care Education/Training Program; Referring Provider Orthopaedic Surgery; Visit Provider Orthopaedic Surgery
DX: Z01.812 Encounter for preprocedural laboratory examination (principal); N39.0 Urinary tract infection, site not specified; R73.9 Hyperglycemia, unspecified; Z01.818 Encounter for other preprocedural examination
CPT/HCPCS: 36415; 80048; 81001; 83036; 85025; 87086; 93005

== ENCOUNTER 2025-05-03 13:42 | Inpatient (IN) | payer MEDICARE, OTHER, SELFPAY ==
[2025-05-03] VITALS (33 sets, daily range): BP systolic 137–200; BP diastolic 68–116; PULSE 63–76; RESP 16–18; TEMP 36.6–36.9; O2SAT 95–100; BMI 29.7
[2025-05-03 14:33] LABS: Alanine Aminotransferase 18 IU/L (<35); Albumin 4.4 g/dL (3.5-5.0); Albumin Globulin Ratio 1.5 (1.0-2.8); Alkaline Phosphatase 82 U/L (38-126); Blood Urea Nitrogen 17 mg/dL (7-17); Calcium 9.3 mg/dL (8.4-10.2); Carbon Dioxide 27 mmol/L (22-32); Chloride 87 mmol/L (98-107); Estimated Glomerular Filt Rate 52 mL/min (>60); Globulin 3.0 g/dL (1.7-4.1); Glucose 180 mg/dL (70-99); HEMOLYSIS < 15 (0-50); Potassium 4.0 mmol/L (3.4-5.1); Sodium 123 mmol/L (137-145); Total Protein 7.4 g/dL (6.3-8.2)
--- NOTE | 2025-05-03 18:13 | ED.RECABL ---
HPI - Recheck/Abnormal Lab/Rx General Chief Complaint: Recheck/Abnormal Lab/Rx Stated Complaint: Low Sodium Sent from PCP Time Seen by Provider: 05/03/25 18:13 Source: patient Mode of arrival: Ambulatory History of Present Illness HPI narrative: Patient is a 79-year-old female with a past medical history diabetes, hypertension, comes into the ED from home for evaluation of abnormal labs, patient states that she had lab work performed yesterday and was told that her sodium was 125. To note that patient also has been complaining of some low blood pressure, dizziness, nausea and generalized fatigue over the past week. Has had diarrhea associated with this but no vomiting. She denies any actual other symptoms such as headache visual disturbances chest pain shortness breath fever chills abdominal pain or any other GI/ symptoms at this time. Related Data Home Medications ?Medication ?Instructions ?Recorded ?Confirmed [DIABETES] ##0 03/27/17 [HIGH CHOLESTEROL ] ##0 03/27/17 [HTN MEDICATION] ##0 03/27/17 amitriptyline 25 mg tablet 25 mg PO HS ##0 03/27/17 gabapentin 300 mg capsule 300 mg PO TID ##0 03/27/17 (Neurontin) Previous Rx's ?Medication ?Instructions ?Recorded hydrocodone 5 mg-acetaminophen 325 0 tab PO Q6HP PRN #15 tabs 03/27/17 mg tablet ketorolac 10 mg tablet 10 mg PO Q6HP PRN #15 tabs 03/27/17 methocarbamol 500 mg tablet 500 mg PO QIDP PRN #14 tabs 03/27/17 cyclobenzaprine 10 mg tablet 10 mg PO Q8HP PRN #20 tabs 04/03/17 hydrocodone 5 mg-acetaminophen 325 1 - 2 tab PO Q6H PRN #15 tabs 04/03/17 mg tablet ([place]) ketorolac 10 mg tablet 10 mg PO Q8HP PRN #20 tabs 04/03/17 clonidine HCl 0.1 mg tablet 0.1 mg PO TID PRN hypertensive 06/29/24 emergency #30 tabs Allergies Allergy/AdvReac Type Severity Reaction Status Date / Time pregabalin (From LYRICA) Allergy Intermediate SWELLING Unverified 01/21/18 12:44 lisinopril (LISINOPRIL) AdvReac Intermediate COUGH Unverified 04/13/24 10:52 Review of Systems Review of Systems Narrative: General: Positive generalized fatigue Denies fever, chills, weight loss HEENT: Denies headache, eye drainage, eye irritation, head trauma, sore throat, voice change Cardiovascular: Denies any chest pain, palpitations, tachycardia Respiratory: Denies any shortness of breath, cough, wheeze, stridor GI/: Denies any abdominal pain, nausea, vomiting, diarrhea, bright red blood per rectum, melanotic stools, urinary frequency, urinary retention, dysuria, hematuria MSK: Denies any joint pain, muscle pains, swelling Skin: Denies any rashes, lesions, discoloration Neuro: Positive dizziness, Denies any headache, lightheadedness, fainting, weakness Psych: Denies SI/HI Patient History Social History Smoking Status: Never smoker Smoking Status: Never smoker alcohol intake frequency: a few times a month Exam Initial Vital Signs Initial Vital Signs: Vital Signs Temperature 98.4 F 05/03/25 13:46 Pulse Rate 65 05/03/25 13:46 Respiratory Rate 18 05/03/25 13:46 Blood Pressure 163/74 H 05/03/25 13:46 Pulse Oximetry 97 05/03/25 13:46 Oxygen Delivery Method Room Air 05/03/25 13:46 Course Orders Ordered: ED Orders 05/03/25 13:55 Sodium Urine Random Stat 05/03/25 14:08 CBC Auto Diff [Complete Blood Count AUTO DIFF] Stat CMP [Comprehensive Metabolic Panel] Stat Lipase Stat MAG [Magnesium] Stat PHOS [Phosphorous] Stat TSH [Thyroid Stimulating Hormone] Stat 05/03/25 18:14 CXR [XR chest 1V] Stat 05/03/25 18:15 EKG-12 Lead Stat 05/03/25 18:40 Urinalysis and Microscopic Stat 05/03/25 21:38 CMP [Comprehensive Metabolic Panel] Stat Discontinued Medications Sodium Chloride (Normal Saline 0.9%) 1,000 mls @ 1,000 mls/hr IV BOLUS ONE Stop: 05/03/25 19:13 Last Infusion: 05/03/25 20:01 Dose: Infused Documented By: Admin: 05/03/25 18:56 Dose: 1,000 mls/hr Documented By: DORON Vital Signs Vital signs: Vital Signs - 8 hr 05/03/25 13:46 05/03/25 15:37 05/03/25 15:38 Temperature 98.4 F Pulse Rate 65 Respiratory Rate 18 Blood Pressure 163/74 H 137/71 Pulse Oximetry 97 98 Oxygen Delivery Method Room Air 05/03/25 15:38 05/03/25 15:40 05/03/25 15:40 Temperature Pulse Rate 65 66 Respiratory Rate Blood Pressure 138/75 Pulse Oximetry 97 98 Oxygen Delivery Method 05/03/25 16:00 05/03/25 16:01 05/03/25 16:01 Temperature Pulse Rate 64 63 Respiratory Rate Blood Pressure 177/79 H Pulse Oximetry 99 99 Oxygen Delivery Method 05/03/25 16:21 05/03/25 16:21 05/03/25 16:30 Temperature Pulse Rate 69 71 Respiratory Rate Blood Pressure 159/116 H Pulse Oximetry 98 97 Oxygen Delivery Method 05/03/25 16:41 05/03/25 16:41 05/03/25 17:00 Temperature Pulse Rate 69 Respiratory Rate Blood Pressure 151/68 H 162/77 H Pulse Oximetry 97 Oxygen Delivery Method 05/03/25 17:00 05/03/25 17:20 05/03/25 17:20 Temperature Pulse Rate 67 64 Respiratory Rate Blood Pressure 158/77 H Pulse Oximetry 99 100 Oxygen Delivery Method 05/03/25 17:30 05/03/25 17:40 05/03/25 17:40 Temperature Pulse Rate 63 64 Respiratory Rate Blood Pressure 148/70 H Pulse Oximetry 100 98 Oxygen Delivery Method 05/03/25 18:00 05/03/25 18:00 05/03/25 18:21 Temperature Pulse Rate 67 Respiratory Rate Blood Pressure 161/75 H 154/84 H Pulse Oximetry 98 Oxygen Delivery Method 05/03/25 18:21 05/03/25 18:30 05/03/25 18:40 Temperature Pulse Rate 66 68 Respiratory Rate Blood Pressure 168/81 H Pulse Oximetry 98 99 Oxygen Delivery Method 05/03/25 18:40 05/03/25 19:00 05/03/25 19:00 Temperature Pulse Rate 65 68 Respiratory Rate Blood Pressure 183/87 H Pulse Oximetry 100 98 Oxygen Delivery Method 05/03/25 19:21 05/03/25 19:21 05/03/25 19:30 Temperature Pulse Rate 71 71 Respiratory Rate Blood Pressure 196/83 H Pulse Oximetry 98 99 Oxygen Delivery Method 05/03/25 19:41 05/03/25 19:41 05/03/25 20:06 Temperature Pulse Rate 67 76 Respiratory Rate Blood Pressure 200/86 H Pulse Oximetry 98 95 Oxygen Delivery Method 05/03/25 20:07 05/03/25 20:07 05/03/25 20:20 Temperature Pulse Rate 76 Respiratory Rate Blood Pressure 191/88 H 197/87 H Pulse Oximetry 96 Oxygen Delivery Method 05/03/25 20:20 05/03/25 20:30 05/03/25 20:45 Temperature Pulse Rate 65 64 Respiratory Rate Blood Pressure 160/76 H Pulse Oximetry 99 99 Oxygen Delivery Method 05/03/25 20:45 05/03/25 21:00 05/03/25 21:00 Temperature Pulse Rate 69 64 Respiratory Rate Blood Pressure 158/77 H Pulse Oximetry 99 99 Oxygen Delivery Method MDM - Recheck/Abnormal Lab/Rx Lab Data 05/03/25 14:08 05/03/25 14:08 Labs: Lab Results 05/03/25 05/03/25 Range/Units 13:55 14:08 WBC 6.2 (4.5-11.0) X10^3/uL RBC 3.80 L (4.0-5.2) X10^6/uL Hgb 11.6 L (12.0-16.0) g/dL Hct 32.6 L (36-46) % MCV 85.8 (80-100) fL MCH 30.5 (26-34) PG MCHC 35.6 (30-36) % RDW 12.8 (11.6-14.8) % Plt Count 292 (150-400) X10^3/uL Neut % (Auto) 66.9 (50-75) % Lymph % (Auto) 22.8 L (25-40) % [place] % (Auto) 8.6 (3-14) % Eos % (Auto) 1.1 L (2-4) % Baso % (Auto) 0.6 (0-2) % Neut # (Auto) 4100 (2254-2016) /uL Lymph # (Auto) 1400 (9940-8987) /uL [place] # (Auto) 500 (0-900) /uL Eos # (Auto) 100 (0-450) /uL Baso # (Auto) 0 (0-100) /uL Sodium 123 L (137-145) mmol/L Potassium 4.0 (3.4-5.1) mmol/L Chloride 87 L (98-107) mmol/L Carbon Dioxide 27 (22-32) mmol/L BUN 17 (7-17) mg/dL Creatinine 1.08 H (0.52-1.04) mg/dL Estimated GFR 52 L (>60) mL/min BUN/Creatinine Ratio 15.7 (6-22) Glucose 180 H (70-99) mg/dL Calcium 9.3 (8.4-10.2) mg/dL Phosphorus 4.0 (2.8-4.1) mg/dL Magnesium 1.3 L (1.6-2.3) mg/dL Total Bilirubin 0.5 (0.2-1.3) mg/dL AST 21 (14-36) IU/L ALT 18 (<35) IU/L Alkaline Phosphatase 82 (38-126) U/L Total Protein 7.4 (6.3-8.2) g/dL Albumin 4.4 (3.5-5.0) g/dL Globulin 3.0 (1.7-4.1) g/dL Albumin/Globulin Ratio 1.5 (1.0-2.8) Lipase 1001 H (23-300) U/L TSH 1.28 (0.47-4.68) uIU/mL Ur Random Sodium 46 (30-90) mmol/L Imaging Data Chest x-ray: Radiologist's Impression: [address] [address] XRay Report Signed Patient: Kylie Alonso MR#: [id number] : 1945 Acct:[id number] Age/Sex: 79 / F Date of Service: 05/03/25 Loc: ED Accession Number: [id number] Procedure: XR chest 1V Ordering Provider: Rosendo Harper D.O. PROCEDURE: XR CHEST 1V INDICATIONS: dizzy TECHNIQUE: One view of the chest was acquired. COMPARISON: [facility], , XR CHEST 1V, 06/29/2024, 17:08. FINDINGS: Surgical changes and devices: None. Lungs and pleura: Lungs are clear. No pleural effusions or pneumothorax. Mediastinum: Mediastinal contours appear normal. Heart size is normal. Bones and chest wall: No suspicious bony lesions. Overlying soft tissues appear unremarkable. IMPRESSION: No acute pulmonary process. MDM Narrative Medical decision making narrative: Patient is a 79-year-old female with a past medical history of hypertension, hyperlipidemia, diabetes, comes into the ED from home for evaluation of multiple complaints. She states that over the past week she has been feeling generalized fatigue dizziness nausea, she states that she had her labs drawn yesterday for preop for a left knee repair, she states that she was called by her physician that it was low in the 125 and she needed it come into the ED. she does state that she has been having diarrhea over the past week but this has since resolved not complaining of any abdominal pain, she states that she was taken off the clonidine today by her primary care doctor due to the fact that they believe this is the cause of her hyponatremia. Otherwise patient not complaining of any other symptoms. Here patients lab work not consistent with a leukocytosis, sodium was 123 here, creatinine 1.08, GFR 52, random urine sodium 46, chest x-ray without any acute cardiopulmonary abnormality. Patient without any leukocytosis, magnesium was slightly decreased at 1.3, we will replete here, lipase was also incidentally elevated at 1001 however patient is not having any abdominal pain nausea and vomiting at this time, patient is able to tolerate p.o. liquids and solids, however given patient with symptomatic hyponatremia at 123, patient will be admitted to the hospital for electrolyte monitoring repletion call placed out to hospitalist for admission The patient's management plan was discussed Dr. Barboza, who agrees to admit the patient to their service and assumes care of this patient at this time. Full admission orders will be placed by the primary team. Discharge Plan Departure Patient Disposition: Admitted As Inpatient Clinical Impression: Acute hyponatremia, Hypomagnesemia
--- NOTE | 2025-05-03 18:14 | DI.RAD.S_ITS ---
PROCEDURE: XR CHEST 1V INDICATIONS: dizzy TECHNIQUE: One view of the chest was acquired. COMPARISON: [facility], CR, XR CHEST 1V, 06/29/2024, 17:08. FINDINGS: Surgical changes and devices: None. Lungs and pleura: Lungs are clear. No pleural effusions or pneumothorax. Mediastinum: Mediastinal contours appear normal. Heart size is normal. Bones and chest wall: No suspicious bony lesions. Overlying soft tissues appear unremarkable. IMPRESSION: No acute pulmonary process. Dictated by: Nona Tucker M.D. on 05/03/2025 at 18:42 Approved by: Nona Tucker M.D. on 05/03/2025 at 18:42
[2025-05-03] MEDS: SODIUM CHLORIDE 0.9% 1,000 ML 1000 ML IV (18:56)
--- NOTE | 2025-05-03 19:00 | EKG_ITS ---
[place] [address] [address] [address] Test Date: 2025-05-03 Pat Name: Kylie Alonso Department: Room: Gender: Female Well Shooter: RAGHU : 1945 Requested By: Order Number: [id number] Reading MD: Robbin Ku Measurements Intervals [place] Rate: 66 P: 40 IA: 194 QRS: -14 QRSD: 134 T: 8 QT: 464 QTc: 486 Interpretive Statements Normal sinus rhythm Right bundle branch block Electronically Signed On 05-04-2025 15:05:30 PDT by Robbin Ku
[2025-05-03 20:48] LABS: Add Manual Diff / Slide Review NO; Hematocrit 32.6 % (36-46); Hemoglobin 11.6 g/dL (12.0-16.0); Lymphocytes Absolute Auto 1400 /uL (1100-4500); Mean Corpuscular HGB Conc 35.6 % (30-36); Mean Corpuscular Hemoglobin 30.5 PG (26-34); Mean Corpuscular Volume 85.8 fL (80-100); Platelet Count 292 X10^3/uL (150-400)
[2025-05-03 20:53] LABS: Lipase 1001 U/L (23-300); Magnesium 1.3 mg/dL (1.6-2.3)
[2025-05-03 20:54] LABS: Phosphorous 4.0 mg/dL (2.8-4.1)
[2025-05-03 21:25] LABS: Thyroid Stimulating Hormone 1.28 uIU/mL (0.47-4.68)
--- NOTE | 2025-05-03 21:46 | ED_ITS ---
HPI - Recheck/Abnormal Lab/Rx General Chief Complaint: Recheck/Abnormal Lab/Rx Stated Complaint: Low Sodium Sent from PCP Time Seen by Provider: 05/03/25 18:13 Source: patient Mode of arrival: Ambulatory Related Data Home Medications ?Medication ?Instructions ?Recorded ?Confirmed [DIABETES] ##0 03/27/17 [HIGH CHOLESTEROL ] ##0 03/27/17 [HTN MEDICATION] ##0 03/27/17 amitriptyline 25 mg tablet 25 mg PO HS ##0 03/27/17 gabapentin 300 mg capsule 300 mg PO TID ##0 03/27/17 (Neurontin) Previous Rx's ?Medication ?Instructions ?Recorded hydrocodone 5 mg-acetaminophen 325 0 tab PO Q6HP PRN # 15 tabs 03/27/17 mg tablet ketorolac 10 mg tablet 10 mg PO Q6HP PRN #15 tabs 0 03/27/17 methocarbamol 500 mg tablet 500 mg PO QIDP PRN #14 tab s 03/27/17 cyclobenzaprine 10 mg tablet 10 mg PO Q8HP PRN #20 tab s 04/03/17 hydrocodone 5 mg-acetaminophen 325 1 - [address] N #15 tabs 04/03/17 mg tablet ([place]) ketorolac 10 mg tablet 10 mg PO Q8HP PRN #20 tabs 0 04/03/17 clonidine HCl 0.1 mg tablet 0.1 mg PO TID PRN hyperten sive 06/29/24 emergency #30 tabs Allergies Allergy/AdvReac Type Severity Reaction Status Date / Time pregabalin (From LYRICA) Allergy Intermediate SWELLING Unverified 01/21/18 12:44 lisinopril (LISINOPRIL) AdvReac Intermediate COUGH Unverified 04/13/24 10:52 Review of Systems Review of Systems Narrative: As per HPI. Rest of 10-system review negative. Patient History Social History Smoking Status: Never smoker Smoking Status: Never smoker alcohol intake frequency: a few times a month Exam Initial Vital Signs Initial Vital Signs: Vital Signs Temperature 98.4 F 05/03/25 13:46 Pulse Rate 65 05/03/25 13:46 Respiratory Rate 18 05/03/25 13:46 Blood Pressure 163/74 H 05/03/25 13:46 Pulse Oximetry 97 05/03/25 13:46 Oxygen Delivery Method Room Air 05/03/25 13:46 Patient was evaluated entirely through 2-way audio/video telemedicine with RN assistance in exam. Physician was not present at beside in person at any time for this evaluation. Consent for telemedicine obviously obtained from patient. Course Orders Ordered: ED Orders 05/03/25 13:55 Sodium Urine Random Stat 05/03/25 14:08 CBC Auto Diff [Complete Blood Count AUTO DIFF] Stat CMP [Comprehensive Metabolic Panel] Stat Lipase Stat MAG [Magnesium] Stat PHOS [Phosphorous] Stat TSH [Thyroid Stimulating Hormone] Stat 05/03/25 18:14 CXR [XR chest 1V] Stat 05/03/25 18:15 EKG-12 Lead Stat 05/03/25 18:40 Urinalysis and Microscopic Stat 05/03/25 21:38 CMP [Comprehensive Metabolic Panel] Stat Discontinued Medications Sodium Chloride (Normal Saline 0.9%) 1,000 mls @ 1,000 mls/hr IV BOLUS ONE Stop: 05/03/25 19:13 Last Infusion: 05/03/25 20:01 Dose: Infused Documented By: Admin: 05/03/25 18:56 Dose: 1,000 mls/hr Documented By: DORON Vital Signs Vital signs: Vital Signs - 8 hr 05/03/25 15:37 05/03/25 15:38 05/03/25 15:38 Pulse Rate 65 Blood Pressure 137/71 Pulse Oximetry 98 97 05/03/25 15:40 05/03/25 15:40 05/03/25 16:00 Pulse Rate 66 64 Blood Pressure 138/75 Pulse Oximetry 98 99 05/03/25 16:01 05/03/25 16:01 05/03/25 16:21 Pulse Rate 63 Blood Pressure 177/79 H 159/116 H Pulse Oximetry 99 05/03/25 16:21 05/03/25 16:30 05/03/25 16:41 Pulse Rate 69 71 Blood Pressure 151/68 H Pulse Oximetry 98 97 05/03/25 16:41 05/03/25 17:00 05/03/25 17:00 Pulse Rate 69 67 Blood Pressure 162/77 H Pulse Oximetry 97 99 05/03/25 17:20 05/03/25 17:20 05/03/25 17:30 Pulse Rate 64 63 Blood Pressure 158/77 H Pulse Oximetry 100 100 05/03/25 17:40 05/03/25 17:40 05/03/25 18:00 Pulse Rate 64 Blood Pressure 148/70 H 161/75 H Pulse Oximetry 98 05/03/25 18:00 05/03/25 18:21 05/03/25 18:21 Pulse Rate 67 66 Blood Pressure 154/84 H Pulse Oximetry 98 98 05/03/25 18:30 05/03/25 18:40 05/03/25 18:40 Pulse Rate 68 65 Blood Pressure 168/81 H Pulse Oximetry 99 100 05/03/25 19:00 05/03/25 19:00 05/03/25 19:21 Pulse Rate 68 Blood Pressure 183/87 H 196/83 H Pulse Oximetry 98 05/03/25 19:21 05/03/25 19:30 05/03/25 19:41 Pulse Rate 71 71 Blood Pressure 200/86 H Pulse Oximetry 98 99 05/03/25 19:41 05/03/25 20:06 05/03/25 20:07 Pulse Rate 67 76 Blood Pressure 191/88 H Pulse Oximetry 98 95 05/03/25 20:07 05/03/25 20:20 05/03/25 20:20 Pulse Rate 76 65 Blood Pressure 197/87 H Pulse Oximetry 96 99 05/03/25 20:30 05/03/25 20:45 05/03/25 20:45 Pulse Rate 64 69 Blood Pressure 160/76 H Pulse Oximetry 99 99 05/03/25 21:00 05/03/25 21:00 Pulse Rate 64 Blood Pressure 158/77 H Pulse Oximetry 99 MDM - Recheck/Abnormal Lab/Rx Lab Data 05/03/25 14:08 05/03/25 14:08 Labs: Lab Results 05/03/25 05/03/25 Range/Units 13:55 14:08 WBC 6.2 (4.5-11.0) X10^3/uL RBC 3.80 L (4.0-5.2) X10^6/uL Hgb 11.6 L (12.0-16.0) g/dL Hct 32.6 L (36-46) % MCV 85.8 (80-100) fL MCH 30.5 (26-34) PG MCHC 35.6 (30-36) % RDW 12.8 (11.6-14.8) % Plt Count 292 (150-400) X10^3/uL Neut % (Auto) 66.9 (50-75) % Lymph % (Auto) 22.8 L (25-40) % [place] % (Auto) 8.6 (3-14) % Eos % (Auto) 1.1 L (2-4) % Baso % (Auto) 0.6 (0-2) % Neut # (Auto) 4100 (0609-6254) /uL Lymph # (Auto) 1400 (0920-0577) /uL [place] # (Auto) 500 (0-900) /uL Eos # (Auto) 100 (0-450) /uL Baso # (Auto) 0 (0-100) /uL Sodium 123 L (137-145) mmol/L Potassium 4.0 (3.4-5.1) mmol/L Chloride 87 L (98-107) mmol/L Carbon Dioxide 27 (22-32) mmol/L BUN 17 (7-17) mg/dL Creatinine 1.08 H (0.52-1.04) mg/dL Estimated GFR 52 L (>60) mL/min BUN/Creatinine Ratio 15.7 (6-22) Glucose 180 H (70-99) mg/dL Calcium 9.3 (8.4-10.2) mg/dL Phosphorus 4.0 (2.8-4.1) mg/dL Magnesium 1.3 L (1.6-2.3) mg/dL Total Bilirubin 0.5 (0.2-1.3) mg/dL AST 21 (14-36) IU/L ALT 18 (<35) IU/L Alkaline Phosphatase 82 (38-126) U/L Total Protein 7.4 (6.3-8.2) g/dL Albumin 4.4 (3.5-5.0) g/dL Globulin 3.0 (1.7-4.1) g/dL Albumin/Globulin Ratio 1.5 (1.0-2.8) Lipase 1001 H (23-300) U/L TSH 1.28 (0.47-4.68) uIU/mL Ur Random Sodium 46 (30-90) mmol/L Discharge Plan Departure Patient Disposition: Admitted As Inpatient Clinical Impression: Acute hyponatremia, Hypomagnesemia
--- NOTE | 2025-05-03 21:52 | PM.HP.1 ---
History of Present Illness History of Present Illness Chief complaint: Low Sodium Sent from PCP Narrative: Patient is a 79-year-old female with a past medical history diabetes, hypertension, admitted from ED after coming in at urging of PCP who reported Na of 125 after pre-op evaluation for L knee repair. Patient has had dizziness, nausea and generalized fatigue over the past week. Has had diarrhea associated with this but no vomiting. She denies any actual other symptoms such as headache visual disturbances chest pain shortness breath fever chills abdominal pain or any other GI/ symptoms at this time. Labs show no leucocytosis but did show sodium 123. CXR showed no acute disease. Lipase incidentally elevated at 1001. Patient noted that she did have nausea and mild abdominal pain with decrease in appetite though she did tolerate a sandwich in ER today. Started on IV normal saline. Admitted for treatment of symptomatic hyponatremia at 123. [facility] Social History household members: spouse Smoking Status: Never smoker Meds Home Medications and Allergies Home Medications ?Medication ?Instructions ?Recorded ?Confirmed ?Type [DIABETES] ##0 03/27/17 History [HIGH CHOLESTEROL ] ##0 03/27/17 History Held on 05/03/25. Instructions: Order Change [HTN MEDICATION] ##0 03/27/17 History gabapentin 300 mg capsule 300 mg PO TID ##0 03/27/17 05/03/25 History (Neurontin) ketorolac 10 mg tablet 10 mg PO Q6HP PRN pain #15 tabs 03/27/17 05/03/25 Rx methocarbamol 500 mg tablet 500 mg PO QIDP PRN pain #14 tabs 03/27/17 05/03/25 Rx cyclobenzaprine 10 mg tablet 10 mg PO Q8HP PRN muscle spasm #20 04/03/17 05/03/25 Rx tabs ketorolac 10 mg tablet 10 mg PO Q8HP PRN pain #20 tabs 04/03/17 05/03/25 Rx clonidine HCl 0.1 mg tablet 0.1 mg PO TID PRN hypertensive 06/29/24 05/03/25 Rx Held on 05/03/25. emergency #30 tabs Instructions: Provider's Order amitriptyline 50 mg tablet 50 mg PO ONCE PM 05/03/25 05/03/25 History atorvastatin 10 mg tablet 10 mg PO DAILY 05/03/25 05/03/25 History hydrocodone 5 mg-acetaminophen 325 1 - 2 tab PO Q6H PRN pain 05/03/25 05/03/25 History mg tablet metoprolol succinate 50 mg 50 mg PO DAILY 05/03/25 05/03/25 History tablet,extended release 24 hr omeprazole 20 mg capsule,delayed 20 mg PO BID 05/03/25 05/03/25 History release oxycodone 5 mg tablet PO pain 05/03/25 History sitagliptin phosphate 50 1 tab PO BID 05/03/25 05/03/25 History mg-metformin 1,000 mg tablet ([place]) valsartan 320 mg tablet 320 mg PO DAILY 05/03/25 05/03/25 History Allergies Allergy/AdvReac Type Severity Reaction Status Date / Time pregabalin (From LYRICA) Allergy Intermediate SWELLING Unverified 01/21/18 12:44 lisinopril (LISINOPRIL) AdvReac Intermediate COUGH Unverified 04/13/24 10:52 Review of Systems Review of Systems Narrative: As per HPI. Rest of 10-system review negative. Exam Vital Signs (past 8 hours): - 05/03/25 15:37 05/03/25 15:38 05/03/25 15:38 Pulse Rate 65 Blood Pressure 137/71 Pulse Oximetry 98 97 05/03/25 15:40 05/03/25 15:40 05/03/25 16:00 Pulse Rate 66 64 Blood Pressure 138/75 Pulse Oximetry 98 99 05/03/25 16:01 05/03/25 16:01 05/03/25 16:21 Pulse Rate 63 Blood Pressure 177/79 H 159/116 H Pulse Oximetry 99 05/03/25 16:21 05/03/25 16:30 05/03/25 16:41 Pulse Rate 69 71 Blood Pressure 151/68 H Pulse Oximetry 98 97 05/03/25 16:41 05/03/25 17:00 05/03/25 17:00 Pulse Rate 69 67 Blood Pressure 162/77 H Pulse Oximetry 97 99 05/03/25 17:20 05/03/25 17:20 05/03/25 17:30 Pulse Rate 64 63 Blood Pressure 158/77 H Pulse Oximetry 100 100 05/03/25 17:40 05/03/25 17:40 05/03/25 18:00 Pulse Rate 64 Blood Pressure 148/70 H 161/75 H Pulse Oximetry 98 05/03/25 18:00 05/03/25 18:21 05/03/25 18:21 Pulse Rate 67 66 Blood Pressure 154/84 H Pulse Oximetry 98 98 05/03/25 18:30 05/03/25 18:40 05/03/25 18:40 Pulse Rate 68 65 Blood Pressure 168/81 H Pulse Oximetry 99 100 05/03/25 19:00 05/03/25 19:00 05/03/25 19:21 Pulse Rate 68 Blood Pressure 183/87 H 196/83 H Pulse Oximetry 98 05/03/25 19:21 05/03/25 19:30 05/03/25 19:41 Pulse Rate 71 71 Blood Pressure 200/86 H Pulse Oximetry 98 99 05/03/25 19:41 05/03/25 20:06 05/03/25 20:07 Pulse Rate 67 76 Blood Pressure 191/88 H Pulse Oximetry 98 95 05/03/25 20:07 05/03/25 20:20 05/03/25 20:20 Pulse Rate 76 65 Blood Pressure 197/87 H Pulse Oximetry 96 99 05/03/25 20:30 05/03/25 20:45 05/03/25 20:45 Pulse Rate 64 69 Blood Pressure 160/76 H Pulse Oximetry 99 99 05/03/25 21:00 05/03/25 21:00 Pulse Rate 64 Blood Pressure 158/77 H Pulse Oximetry 99 Oxygen Delivery Method Room Air Narrative Exam Narrative: Patient was evaluated entirely through 2-way audio/video telemedicine with RN assistance in exam. Physician was not present at beside in person at any time for this evaluation. Consent for telemedicine obviously obtained from patient. Const Other: AA, NAD, Ox3 HENMT Other: NC/AT, PERRL, eyeglasses. Neck Other: supple Resp Other: CTA-B w/r Cardio Other: RRR GI Other: S/NT/ND/+BS Skin Other: no evident rash Neuro Other: normal speech Extrem Other: no edema Objective Imaging Chest x-ray: Radiologist's impression: No acute disease. Labs 05/03/25 14:08 05/03/25 21:49 Labs: Laboratory Results - last 24 hr 05/03/25 05/03/25 13:55 14:08 WBC 6.2 RBC 3.80 L Hgb 11.6 L Hct 32.6 L MCV 85.8 MCH 30.5 MCHC 35.6 RDW 12.8 Plt Count 292 Neut % (Auto) 66.9 Lymph % (Auto) 22.8 L [place] % (Auto) 8.6 Eos % (Auto) 1.1 L Baso % (Auto) 0.6 Neut # (Auto) 4100 Lymph # (Auto) 1400 [place] # (Auto) 500 Eos # (Auto) 100 Baso # (Auto) 0 Sodium 123 L Potassium 4.0 Chloride 87 L Carbon Dioxide 27 BUN 17 Creatinine 1.08 H Estimated GFR 52 L BUN/Creatinine Ratio 15.7 Glucose 180 H Calcium 9.3 Phosphorus 4.0 Magnesium 1.3 L Total Bilirubin 0.5 AST 21 ALT 18 Alkaline Phosphatase 82 Total Protein 7.4 Albumin 4.4 Globulin 3.0 Albumin/Globulin Ratio 1.5 Lipase 1001 H TSH 1.28 Ur Random Sodium 46 Assessment & Plan Assessment and plan (1) Acute hyponatremia: Status: Acute Assessment & Plan narrative: 1. Acute symptomatic hyponatremia 2. Elevated lipase/pancreatitis, mild 3. DM2 4. HTN Plan: 1. Admit to inpatient, medicine 2. Normal saline at 75 ml/h 3. DC clonidine as suspected cause 4. BMP q6h 5. Max rise in serum Na - 12 mEq/24 hours 6. NPO, t/c advance diet tomorrow, SSI 7. 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
[2025-05-03 22:08] LABS: Alanine Aminotransferase 16 IU/L (<35); Albumin 3.9 g/dL (3.5-5.0); Albumin Globulin Ratio 1.3 (1.0-2.8); Alkaline Phosphatase 84 U/L (38-126); Blood Urea Nitrogen 15 mg/dL (7-17); Calcium 8.9 mg/dL (8.4-10.2); Carbon Dioxide 26 mmol/L (22-32); Chloride 92 mmol/L (98-107); Estimated Glomerular Filt Rate 60 mL/min (>60); Globulin 2.9 g/dL (1.7-4.1); Glucose 117 mg/dL (70-99); HEMOLYSIS < 15 (0-50); Potassium 3.8 mmol/L (3.4-5.1); Sodium 125 mmol/L (137-145); Total Protein 6.8 g/dL (6.3-8.2)
[2025-05-03 22:27] LABS: Appearance Urine UA CLEAR; Bilirubin Urine UA NEGATIVE (NEGATIVE); Color Urine UA YELLOW; Glucose Urine UA NEGATIVE (Negative); Ketones Urine UA NEGATIVE (NEGATIVE); Leukocyte Esterase Urine UA TRACE (NEGATIVE); Nitrite Urine UA NEGATIVE (Negative); Occult Blood Urine UA TRACE-INTACT (Negative); Protein Urine UA NEGATIVE (Negative); Specific Gravity Urine UA 1.010 (1.000-1.035); Urobilinogen Urine UA 0.2 E.U./dL (0.2); pH Urine UA 7.0 (4.5-8.0)
[2025-05-03 22:34] LABS: Culture Indicated Urine Cult Not Indicated
[2025-05-03] MEDS: SODIUM CHLORIDE 0.9% 1,000 ML 75 ML IV (22:58)
[2025-05-04] VITALS (10 sets, daily range): BP systolic 142–181; BP diastolic 69–94; PULSE 88–100; RESP 13–18; TEMP 35.7–37.2; O2SAT 92–99
[2025-05-04] MEDS: AMITRIPTYLINE 25 MG TABLET 50 MG PO ×2 (00:09→20:34)
[2025-05-04 00:21] LABS: Magnesium 1.2 mg/dL (1.6-2.3)
[2025-05-04 00:38] LABS: Add Manual Diff / Slide Review NO; Hematocrit 31.3 % (36-46); Hemoglobin 11.3 g/dL (12.0-16.0); Lymphocytes Absolute Auto 2200 /uL (1100-4500); Mean Corpuscular HGB Conc 36.1 % (30-36); Mean Corpuscular Hemoglobin 30.8 PG (26-34); Mean Corpuscular Volume 85.4 fL (80-100); Platelet Count 257 X10^3/uL (150-400)
[2025-05-04 00:56] LABS: Rouleaux 1+
[2025-05-04] MEDS: VALSARTAN 80 MG TABLET 320 MG PO ×2 (01:09→08:42)
[2025-05-04] MEDS: MAGNESIUM SULFATE 4 GM/100 ML PIGGYBACK IV (01:43)
[2025-05-04 07:15] LABS: Add Manual Diff / Slide Review NO; Hematocrit 33.8 % (36-46); Hemoglobin 12.0 g/dL (12.0-16.0); Lymphocytes Absolute Auto 1400 /uL (1100-4500); Mean Corpuscular HGB Conc 35.6 % (30-36); Mean Corpuscular Hemoglobin 30.6 PG (26-34); Mean Corpuscular Volume 85.9 fL (80-100); Platelet Count 273 X10^3/uL (150-400)
[2025-05-04 07:22] LABS: Blood Urea Nitrogen 14 mg/dL (7-17); Calcium 9.4 mg/dL (8.4-10.2); Carbon Dioxide 27 mmol/L (22-32); Chloride 94 mmol/L (98-107); Estimated Glomerular Filt Rate 57 mL/min (>60); Glucose 157 mg/dL (70-99); HEMOLYSIS < 15 (0-50); Potassium 3.9 mmol/L (3.4-5.1); Sodium 130 mmol/L (137-145)
[2025-05-04 07:50] LABS: Magnesium 2.6 mg/dL (1.6-2.3)
[2025-05-04] MEDS: INSULIN LISPRO 100 UNIT/ML 3ML VIAL SUBCUT ×3 (08:15→17:01)
[2025-05-04] MEDS: PANTOPRAZOLE DR 20 MG TABLET PO ×2 (08:42→20:34)
[2025-05-04] MEDS: ATORVASTATIN 20 MG TABLET 10 MG PO (08:42)
--- NOTE | 2025-05-04 08:55 | DI.CT.S_ITS ---
PROCEDURE: CT ABDOMEN PELVIS W CON INDICATIONS: pancreatitis TECHNIQUE: After the administration of intravenous contrast, axial sections acquired from the lung bases to the pubic symphysis. Coronal and sagittal reformats were performed. For radiation dose reduction, the following was used: automated exposure control, adjustment of mA and/or kV according to patient size. COMPARISON: [facility], CT, CT ABDOMEN PELVIS W CON, 04/13/2024, 13:29. FINDINGS: Image quality: Diagnostic. Lower Chest: No significant findings. ABDOMEN: Liver: No solid mass. Gallbladder: Removed. Biliary ducts: No biliary dilation. Pancreas: In this patient with this given history, scrutiny is given to the pancreas. The pancreas demonstrates a normal appearance, with normal enhancement. No significant surrounding inflammatory change can be seen. No peripancreatic fluid collections are seen. No pancreatic ductal dilatation is seen. Spleen: Size is within normal limits. Adrenal Glands: No adrenal nodules. Kidneys and Ureters: No hydronephrosis. No solid mass. No complex renal cystic lesion which requires follow up. Stomach and Bowel: Normal colonic caliber, without significant wall thickening. Colonic diverticulosis is seen, without findings of active diverticulitis. No dilated loops of small bowel are seen. Peritoneum: No abnormal intraperitoneal fluid. No free air. Ventral Wall: No significant ventral hernia. Abdominal Nodes: No retroperitoneal or mesenteric adenopathy by size criteria. Vessels: Aorta and inferior vena cava are normal in size. Atherosclerotic calcification is noted. PELVIS: Pelvic Organs: No adnexal masses are seen on either side. Bladder: No bladder wall thickening, accounting for underdistention. Pelvic Nodes: No enlarged lymph nodes. Miscellaneous: No inguinal hernias are seen. Bones: No aggressive osseous abnormality. T10 vertebroplasty cement can be seen. Focal lower lumbar spine degenerative change can be seen. IMPRESSION: No significant pancreas abnormality by CT. Additional findings: T10 vertebroplasty cement Cholecystectomy Diverticulosis, without active diverticulitis Dictated by: Keyon Carreon M.D. on 05/04/2025 at 9:35 Approved by: Keyon Carreon M.D. on 05/04/2025 at 9:37
--- NOTE | 2025-05-04 10:33 | CM.DANOTE ---
Initial DCP Assessment Note Pt is a 79 yo female, resident of [place], admitted for management of pancreatitis and hyponatremia. PCP: Mercy Curtis Payer: [employer] for [facility] Reviewed chart, pt discussed in multidisciplinary rounds this morning. MADELIN 05/05. Met w/patient who reports that she lives independently in [place] with her spouse, whom she is the primary caregiver. Patient monitors her spouse's needs closely; daughter lives in [place] also and has been looking after spouse as needed. Patient and sp split their time between [place] and [place]. No barriers identified at this time to patient's safe discharge home; close outpatient f/u recommended. Social work team will plan to follow clinical course closely in case any DC needs or concerns arise. 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 No History Provided By Patient Prior Living House Arrangements Household Members spouse Type of Drives own vehicle transporation used prior to admit Independent with ADL Yes 's Is patient alert and Yes oriented? Caregiver for Yes: Spouse Another Comment Patient reports she monitors her spouse's needs closely , he is on continuous O2, moves slowly, walks w/walker. Their daughter is looking after spouse while patient is admitted. Comment Home Barriers to No Discharge Discharge Plan Home Transportation Family to transport Arrangement Referrals Initiated None needed
[2025-05-04] MEDS: ACETAMINOPHEN 325 MG TABLET 650 MG PO (11:12)
--- NOTE | 2025-05-04 11:13 | P.PN_ITS ---
Subjective Subjective Interval history: Summary: Admitted with probable pancreatitis, improving. Hyponatremia from poor PO intake. Ill for 1 week. S: Felling better today, less pain. No nausea. Some back pain. Exam Vital Signs (past 8 hours): - 05/04/25 04:00 05/04/25 08:10 05/04/25 10:00 Temperature 97.3 F L 96.3 F L Pulse Rate 88 89 Respiratory Rate 16 13 Blood Pressure 160/70 H 168/78 H Pulse Oximetry 92 97 96 Oxygen Delivery Method Room Air Oxygen Flow Rate 0 0 Oxygen Delivery Method Room Air Oxygen Flow Rate 0 Narrative Exam Narrative: NAD, alert and oriented. Fluent speech. Lungs are clear, normal rate and effort. Heart is regular, no murmur gallop or rub. Abdomen is soft, non distended. Some epigastric tenderness. Extremities are free of edema. Objective Imaging Chest x-ray: Radiologist's impression: No acute pulmonary process. CT scan - abdomen: Radiologist's impression: ABDOMEN: Liver: No solid mass. Gallbladder: Removed. Biliary ducts: No biliary dilation. Pancreas: In this patient with this given history, scrutiny is given to the pancreas. The pancreas demonstrates a normal appearance, with normal enhancement. No significant surrounding inflammatory change can be seen. No peripancreatic fluid collections are seen. No pancreatic ductal dilatation is seen. Spleen: Size is within normal limits. Adrenal Glands: No adrenal nodules. Kidneys and Ureters: No hydronephrosis. No solid mass. No complex renal cystic lesion which requires follow up. Stomach and Bowel: Normal colonic caliber, without significant wall thickening. Colonic diverticulosis is seen, without findings of active diverticulitis. No dilated loops of small bowel are seen. Peritoneum: No abnormal intraperitoneal fluid. No free air. Ventral Wall: No significant ventral hernia. Abdominal Nodes: No retroperitoneal or mesenteric adenopathy by size criteria. Vessels: Aorta and inferior vena cava are normal in size. Atherosclerotic calcification is noted. PELVIS: Pelvic Organs: No adnexal masses are seen on either side. Bladder: No bladder wall thickening, accounting for underdistention. Pelvic Nodes: No enlarged lymph nodes. Miscellaneous: No inguinal hernias are seen. Bones: No aggressive osseous abnormality. T10 vertebroplasty cement can be seen. Focal lower lumbar spine degenerative change can be seen. IMPRESSION: No significant pancreas abnormality by CT. Additional findings: T10 vertebroplasty cement Cholecystectomy Diverticulosis, without active diverticulitis Labs 05/04/25 07:05 05/04/25 07:05 Labs: Laboratory Results - last 24 hr 05/03/25 05/03/25 05/03/25 13:55 14:08 21:49 WBC 6.2 RBC 3.80 L Hgb 11.6 L Hct 32.6 L MCV 85.8 MCH 30.5 MCHC 35.6 RDW 12.8 Plt Count 292 Neut % (Auto) 66.9 Lymph % (Auto) 22.8 L [place] % (Auto) 8.6 Eos % (Auto) 1.1 L Baso % (Auto) 0.6 Neut # (Auto) 4100 Lymph # (Auto) 1400 [place] # (Auto) 500 Eos # (Auto) 100 Baso # (Auto) 0 RBC Morphology Rouleaux Sodium 123 L 125 L Potassium 4.0 3.8 Chloride 87 L 92 L Carbon Dioxide 27 26 BUN 17 15 Creatinine 1.08 H 0.96 Estimated GFR 52 L 60 BUN/Creatinine Ratio 15.7 15.6 Glucose 180 H 117 H POC Whole Bld Glucose Calcium 9.3 8.9 Phosphorus 4.0 Magnesium 1.3 L Total Bilirubin 0.5 0.7 AST 21 18 ALT 18 16 Alkaline Phosphatase 82 84 Total Protein 7.4 6.8 Albumin 4.4 3.9 Globulin 3.0 2.9 Albumin/Globulin Ratio 1.5 1.3 Lipase 1001 H TSH 1.28 Urine Color Urine Appearance Urine pH Ur Specific [place] Urine Protein Urine Glucose (UA) Urine Ketones Urine Occult Blood Urine Nitrate Urine Bilirubin Urine Urobilinogen Ur Leukocyte Esterase Urine RBC Urine WBC Ur Squamous Epith Cells Urine Bacteria Urine Mucus Ur Culture Indicated? Vol Urine Centrifuged Ur Random Sodium 46 05/03/25 05/03/25 05/03/25 22:03 22:57 23:55 WBC 6.3 RBC 3.67 L Hgb 11.3 L Hct 31.3 L MCV 85.4 MCH 30.8 MCHC 36.1 H RDW 12.8 Plt Count 257 Neut % (Auto) 53.8 Lymph % (Auto) 34.5 [place] % (Auto) 9.7 Eos % (Auto) 1.5 L Baso % (Auto) 0.5 Neut # (Auto) 3400 Lymph # (Auto) 2200 [place] # (Auto) 600 Eos # (Auto) 100 Baso # (Auto) 0 RBC Morphology See below Rouleaux 1+ H Sodium Potassium Chloride Carbon Dioxide BUN Creatinine Estimated GFR BUN/Creatinine Ratio Glucose POC Whole Bld Glucose 123 H Calcium Phosphorus Magnesium 1.2 L Total Bilirubin AST ALT Alkaline Phosphatase Total Protein Albumin Globulin Albumin/Globulin Ratio Lipase TSH Urine Color Yellow Urine Appearance Clear Urine pH 7.0 Ur Specific [place] 1.010 Urine Protein Negative Urine Glucose (UA) Negative Urine Ketones Negative Urine Occult Blood Trace-intact Urine Nitrate Negative Urine Bilirubin Negative Urine Urobilinogen 0.2 Ur Leukocyte Esterase Trace H Urine RBC 1-5/hpf Urine WBC 0-1/hpf Ur Squamous Epith Cells 1-5 /hpf Urine Bacteria Occasional (0-1) Urine Mucus 1+ H Ur Culture Indicated? Cult not indicated Vol Urine Centrifuged 10ml (spun) Ur Random Sodium 05/04/25 05/04/25 07:05 08:06 WBC 7.0 RBC 3.93 L Hgb 12.0 Hct 33.8 L MCV 85.9 MCH 30.6 MCHC 35.6 RDW 12.8 Plt Count 273 Neut % (Auto) 65.6 Lymph % (Auto) 20.7 L [place] % (Auto) 10.5 Eos % (Auto) 1.3 L Baso % (Auto) 1.9 Neut # (Auto) 4600 Lymph # (Auto) 1400 [place] # (Auto) 700 Eos # (Auto) 100 Baso # (Auto) 100 RBC Morphology Rouleaux Sodium 130 L Potassium 3.9 Chloride 94 L Carbon Dioxide 27 BUN 14 Creatinine 1.00 Estimated GFR 57 L BUN/Creatinine Ratio 14.0 Glucose 157 H POC Whole Bld Glucose 161 H Calcium 9.4 Phosphorus Magnesium 2.6 H Total Bilirubin AST ALT Alkaline Phosphatase Total Protein Albumin Globulin Albumin/Globulin Ratio Lipase TSH Urine Color Urine Appearance Urine pH Ur Specific [place] Urine Protein Urine Glucose (UA) Urine Ketones Urine Occult Blood Urine Nitrate Urine Bilirubin Urine Urobilinogen Ur Leukocyte Esterase Urine RBC Urine WBC Ur Squamous Epith Cells Urine Bacteria Urine Mucus Ur Culture Indicated? Vol Urine Centrifuged Ur Random Sodium PFSH Social History household members: spouse Smoking Status: Never smoker Assessment & Plan Assessment & Plan narrative: Assessment & Plan narrative: 1. Acute symptomatic hyponatremia, improving. 2. Elevated lipase/pancreatitis, mild. Improving. 3. DM2, stable. 4. HTN, stable. Plan: 1. Admit to inpatient, medicine 2. Normal saline at 75 ml/h, monitor Na 3. DC clonidine as suspected cause 4. BMP q6h 5. Max rise in serum Na - 12 mEq/24 hours 6. NPO, t/c advance diet tomorrow, SSI 7. Follow up home med rec CT abdomen negative. MADELIN: 05/05. 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
[2025-05-04 11:32] LABS: Blood Urea Nitrogen 13 mg/dL (7-17); Calcium 9.7 mg/dL (8.4-10.2); Carbon Dioxide 25 mmol/L (22-32); Chloride 95 mmol/L (98-107); Estimated Glomerular Filt Rate > 60 mL/min (>60); Glucose 167 mg/dL (70-99); HEMOLYSIS < 15 (0-50); Potassium 4.2 mmol/L (3.4-5.1); Sodium 131 mmol/L (137-145)
[2025-05-04 17:02] LABS: Blood Urea Nitrogen 14 mg/dL (7-17); Calcium 9.1 mg/dL (8.4-10.2); Carbon Dioxide 26 mmol/L (22-32); Chloride 97 mmol/L (98-107); Estimated Glomerular Filt Rate 53 mL/min (>60); Glucose 187 mg/dL (70-99); HEMOLYSIS < 15 (0-50); Potassium 3.9 mmol/L (3.4-5.1); Sodium 131 mmol/L (137-145)
--- NOTE | 2025-05-04 23:22 | PC.NURSE ---
Patient is alert and oriented. Breath sounds CTA with RA sat of 99%. HRR. BP trending higher and was 175/76 earlier and now 169//69. Denied nausea. BT hypoactive and has not had a BM since 04/30 but is passing flatus and currently only on full liquid diet. Is voiding without dysuria, frequency or urgency. Has been independent with mobility and reports no recent falls. Declines use of SCD's at night related to independence and need to go to the bathroom; reminded to ankle wave. Denied any pain. Fall risk score is moderate; bed alarm is not activated at this time.
[2025-05-04 23:35] LABS: Blood Urea Nitrogen 13 mg/dL (7-17); Calcium 9.2 mg/dL (8.4-10.2); Carbon Dioxide 26 mmol/L (22-32); Chloride 99 mmol/L (98-107); Estimated Glomerular Filt Rate 58 mL/min (>60); Glucose 170 mg/dL (70-99); HEMOLYSIS < 15 (0-50); Potassium 3.7 mmol/L (3.4-5.1); Sodium 131 mmol/L (137-145)
[2025-05-05] MEDS: SODIUM CHLORIDE 0.9% 1,000 ML 75 ML IV (01:41)
[2025-05-05 05:30] VITALS: BP 154/88; PULSE 101; RESP 15; TEMP 36.4; O2SAT 96
[2025-05-05 05:51] LABS: Hematocrit 32.6 % (36-46); Hemoglobin 9.6 g/dL (12.0-16.0); Mean Corpuscular HGB Conc 29.5 % (30-36); Mean Corpuscular Hemoglobin 25.4 PG (26-34); Mean Corpuscular Volume 86.3 fL (80-100); Platelet Count 285 X10^3/uL (150-400)
[2025-05-05 06:04] LABS: Blood Urea Nitrogen 11 mg/dL (7-17); Calcium 9.4 mg/dL (8.4-10.2); Carbon Dioxide 24 mmol/L (22-32); Chloride 101 mmol/L (98-107); Estimated Glomerular Filt Rate 58 mL/min (>60); Glucose 184 mg/dL (70-99); HEMOLYSIS < 15 (0-50); Potassium 3.9 mmol/L (3.4-5.1); Sodium 134 mmol/L (137-145)
[2025-05-05 08:00] VITALS: BP 120/76; PULSE 88; RESP 17; TEMP 36.7; O2SAT 97
[2025-05-05] MEDS: ATORVASTATIN 20 MG TABLET 10 MG PO (08:35)
[2025-05-05] MEDS: PANTOPRAZOLE DR 20 MG TABLET PO (08:36)
[2025-05-05] MEDS: ACETAMINOPHEN 325 MG TABLET 650 MG PO (08:36)
[2025-05-05] MEDS: VALSARTAN 80 MG TABLET 320 MG PO (08:37)
[2025-05-05] MEDS: INSULIN LISPRO 100 UNIT/ML 3ML VIAL SUBCUT (08:38)
--- NOTE | 2025-05-05 08:49 | PM.DS.1 ---
History of Present Illness History of Present Illness Date Patient Seen: 05/05/25 Chief complaint: Low Sodium Sent from PCP Narrative: Chief complaint: Nausea generalized fatigue and hyponatremia History of present illness: Patient is a 79-year-old female with a past medical history diabetes, hypertension, admitted from ED after coming in at urging of PCP who reported Na of 125 after pre-op evaluation for L knee repair. Patient has had dizziness, nausea and generalized fatigue over the past week. Has had diarrhea associated with this but no vomiting. She denies any actual other symptoms such as headache visual disturbances chest pain shortness breath fever chills abdominal pain or any other GI/ symptoms at this time. Labs show no leucocytosis but did show sodium 123. CXR showed no acute disease. Lipase incidentally elevated at 1001. Patient noted that she did have nausea and mild abdominal pain with decrease in appetite though she did tolerate a sandwich in ER today. Started on IV normal saline. Admitted for treatment of symptomatic hyponatremia at 123. Hospital course: Patient was able to it advance diet hyponatremia corrected. Patient was educated on prevention of recurrent hyper natremia and recurrent causes. If there is recurrent episodes of hyponatremia and elevated lipase we will recommend imaging with MRCP 1. Acute symptomatic hyponatremia, improving. 2. Elevated lipase/pancreatitis, mild. Improving. 3. DM2, stable. 4. HTN, stable. Plan: Discharge to home Time-Based Coding :: 35 minutes spent with patient and on the chart (including review of chart, obtaining history, exam, reviewing outside data, placing orders, documenting exam and treatment plan, and counseling patient) on 05/05. Discharge Providers Provider Date of admission: 05/03/25 21:47 Discharge Date: 05/05/25 Primary care physician: Mercy Curtis PA-C Discharge provider: Kenneth Santiago MD Exam Vital Signs (past 8 hours): - 05/05/25 05:30 05/05/25 05:30 05/05/25 08:00 Temperature 97.6 F 98.1 F Pulse Rate 101 H 88 Respiratory Rate 15 17 Blood Pressure 154/88 H 120/76 Pulse Oximetry 96 96 97 Oxygen Delivery Method Room Air Oxygen Flow Rate 0 0 0 Oxygen Delivery Method Room Air Oxygen Flow Rate 0 Objective Labs 05/05/25 05:30 05/05/25 05:30 Labs: Laboratory Results - last 24 hr 05/04/25 05/04/25 05/04/25 11:00 12:00 16:14 WBC RBC Hgb Hct MCV MCH MCHC RDW Plt Count Sodium 131 L Potassium 4.2 Chloride 95 L Carbon Dioxide 25 BUN 13 Creatinine 0.95 Estimated GFR > 60 BUN/Creatinine Ratio 13.7 Glucose 167 H POC Whole Bld Glucose 152 H 199 H Calcium 9.7 05/04/25 05/04/25 05/04/25 16:41 20:38 23:18 WBC RBC Hgb Hct MCV MCH MCHC RDW Plt Count Sodium 131 L 131 L Potassium 3.9 3.7 Chloride 97 L 99 Carbon Dioxide 26 26 BUN 14 13 Creatinine 1.07 H 0.99 Estimated GFR 53 L 58 L BUN/Creatinine Ratio 13.1 13.1 Glucose 187 H 170 H POC Whole Bld Glucose 179 H Calcium 9.1 9.2 05/05/25 05/05/25 05:30 07:28 WBC 6.7 RBC 3.78 L Hgb 9.6 L Hct 32.6 L MCV 86.3 MCH 25.4 L MCHC 29.5 L D RDW 12.9 Plt Count 285 Sodium 134 L Potassium 3.9 Chloride 101 Carbon Dioxide 24 BUN 11 Creatinine 0.99 Estimated GFR 58 L BUN/Creatinine Ratio 11.1 Glucose 184 H POC Whole Bld Glucose 199 H Calcium 9.4 PFSH Social History household members: spouse Smoking Status: Never smoker Discharge Plan Discharge Plan Patient Disposition: Home Discharge orders & Medications Prescriptions: Continued gabapentin [Neurontin] 300 MG capsule 300 mg PO TID Qty: 0 [DIABETES] Qty: 0 [HIGH CHOLESTEROL ] Qty: 0 [HTN MEDICATION] Qty: 0 methocarbamol 500 MG tablet 500 mg PO QIDP PRN (Reason: pain) Qty: 14 0RF ketorolac 10 MG tablet 10 mg PO Q6HP PRN (Reason: pain) Qty: 15 0RF cyclobenzaprine 10 MG tablet 10 mg PO Q8HP PRN (Reason: muscle spasm) Qty: 20 0RF ketorolac 10 MG tablet 10 mg PO Q8HP PRN (Reason: pain) Qty: 20 0RF clonidine HCl 0.1 mg tablet 0.1 mg PO TID PRN (Reason: hypertensive emergency) Qty: 30 0RF hydrocodone-acetaminophen 5 MG/325 MG tablet 1 - 2 tab PO Q6H PRN (Reason: pain) atorvastatin 10 mg tablet 10 mg PO DAILY metoprolol succinate 50 mg tablet extended release 24 hr 50 mg PO DAILY amitriptyline 50 mg tablet 50 mg PO ONCE PM valsartan 320 mg tablet 320 mg PO DAILY omeprazole 20 mg capsule,delayed release(DR/EC) 20 mg PO BID oxycodone 5 mg tablet PO Janumet 50-1,000 mg tablet 1 tab PO BID Follow up/Referrals: Mercy Curtis, PAJessicaC [Primary Care Provider, Medical] Visit Report/Discharge Packet Instructions: Eating a Diet Low in Saturated Fat, Trans Fat, and Cholesterol, DI for Pancreatitis, DI for Hyponatremia Stand Alone Forms: Patient Portal/API, Stroke Signs & Symptoms Discharge Data Primary Care Provider: Mercy Curtis
[2025-05-05 09:00] VITALS: O2SAT 97
--- NOTE | 2025-05-05 10:53 | PC.NURSE ---
Day shift: Paperwork signed and all questions answered. Left unit via WC at approx 1050. Pt has all personal belongings. NO new MD scripts. Pt's Spouse in room for teachings. Taken to car by Yvonne PINO
== END 2025-05-05 10:55 | disposition home or self-care (01) | DRG 640 ==
LOC: ED 21:39 → AC 21:48
PROVIDERS: Emergency Medicine; Hospitalist; Admitting Provider Internal Medicine; Emergency Provider Student in an Organized Health Care Education/Training Program; PCP Student in an Organized Health Care Education/Training Program; Referring Provider Student in an Organized Health Care Education/Training Program; Visit Provider Internal Medicine
DX: E87.1 Hypo-osmolality and hyponatremia (principal); K85.90 Acute pancreatitis without necrosis or infection, unspecified; E11.9 Type 2 diabetes mellitus without complications; I10 Essential (primary) hypertension; E83.42 Hypomagnesemia; E78.5 Hyperlipidemia, unspecified; Z79.84 Long term (current) use of oral hypoglycemic drugs
CPT/HCPCS: 36415; 71045; 74177; 80048; 80053; 81001; 82962; 83690; 83735; 84100; 84300; 84443; 85025; 85027; 93005; 96360; 99284; J1815; J3475; Q9967

== ENCOUNTER 2025-06-27 10:20 | Emergency (ER) | payer MEDICARE, OTHER, SELFPAY ==
[2025-05-03 22:45] VITALS: BMI 29.7
[2025-06-27 10:32] VITALS: BP 125/64; PULSE 75; RESP 17; TEMP 36.8; O2SAT 96; BMI 28.8
--- NOTE | 2025-06-27 10:55 | ED.BACK ---
HPI - Back Pain/Injury <Kelley Vasquez PA-C - Last Filed: 06/27/25 14:01> General Chief Complaint: Back Pain/Injury Stated Complaint: Fell , hurt lower back Time Seen by Provider: 06/27/25 10:54 Source: patient History of Present Illness HPI Narrative: Ms. Alonso is a very pleasant 79-year-old female with a past medical history of dzw-rjyccwh-sipequrof type 2 diabetes, HTN, HLD, prior T10 compression fracture, hysterectomy, cholecystectomy who presents to the emergency department with her for mid back pain and right elbow pain after a trip and fall that occurred 1 week ago. Patient states that she was in her house wearing tennis shoes when she got the front of her shoe caught on the floor and tripped and fell forward, reports that she fell/stumbled very slowly over a few feet until she ended up hitting her right elbow and upper body against a wall causing her to somewhat a hyperextend/fold backwards. She did not strike her head. She immediately had midline back pain right elbow pain and some bilateral wrist pain. She also reports that she has a bad left knee that needs to be replaced so this pain was exacerbated as well. She called her who was able to help her up. There was no precipitating symptoms of dizziness, lightheadedness, chest pain or shortness of breath, and there was noted these symptoms after the fall. No loss of consciousness. No blood thinner use. She denies neck pain, headache, abdominal pain wound or laceration. Patient assumes that she just strained her back so she went on normally over the last week, her wrist pain has resolved but her right elbow pain in her mid back pain has persisted. States that mid back pain is worse with rolling over in bed and movement and feels very similar to when she had a compression fracture in the past. She also describes mild right elbow pain directly on the tip of the elbow. She denies headache, neck pain, rib pain, chest pain, abdominal pain, dysuria, constipation, diarrhea, nausea, vomiting, headache, lightheadedness, confusion, fevers, chills. She is ambulatory. Reports that she attempted to use hydrocodone for pain but this did not help however ibuprofen and her daughter's Flexeril have been extremely helpful. She did not take any pain medications this morning. Related Data Home Medications ?Medication ?Instructions ?Recorded ?Confirmed [DIABETES] ##0 03/27/17 [HIGH CHOLESTEROL ] ##0 03/27/17 [HTN MEDICATION] ##0 03/27/17 gabapentin 300 mg capsule 300 mg PO TID ##0 03/27/17 05/03/25 (Neurontin) amitriptyline 50 mg tablet 50 mg PO ONCE PM 05/03/25 05/03/25 atorvastatin 10 mg tablet 10 mg PO DAILY 05/03/25 05/03/25 hydrocodone 5 mg-acetaminophen 325 1 - 2 tab PO Q6H PRN pain 05/03/25 05/03/25 mg tablet metoprolol succinate 50 mg 50 mg PO DAILY 05/03/25 05/03/25 tablet,extended release 24 hr omeprazole 20 mg capsule,delayed 20 mg PO BID 05/03/25 05/03/25 release oxycodone 5 mg tablet PO pain 05/03/25 sitagliptin phosphate 50 1 tab PO BID 05/03/25 05/03/25 mg-metformin 1,000 mg tablet (Christine) valsartan 320 mg tablet 320 mg PO DAILY 05/03/25 05/03/25 Previous Rx's ?Medication ?Instructions ?Recorded ketorolac 10 mg tablet 10 mg PO Q6HP PRN pain #15 tabs 03/27/17 methocarbamol 500 mg tablet 500 mg PO QIDP PRN pain #14 tabs 03/27/17 cyclobenzaprine 10 mg tablet 10 mg PO Q8HP PRN muscle spasm #20 04/03/17 tabs ketorolac 10 mg tablet 10 mg PO Q8HP PRN pain #20 tabs 04/03/17 clonidine HCl 0.1 mg tablet 0.1 mg PO TID PRN hypertensive 06/29/24 emergency #30 tabs cyclobenzaprine 5 mg tablet 5 mg PO TID PRN muscle spasm #10 06/27/25 tabs hydrocodone 5 mg-acetaminophen 325 1 tab PO Q4-6H PRN pain #10 tabs 06/27/25 mg tablet Allergies Allergy/AdvReac Type Severity Reaction Status Date / Time pregabalin (From LYRICA) Allergy Intermediate SWELLING Verified 06/27/25 10:33 lisinopril (LISINOPRIL) AdvReac Intermediate COUGH Verified 06/27/25 10:33 Review of Systems <Kelley Vasquez PA-C - Last Filed: 06/27/25 14:01> Review of Systems ROS Unobtainable: All systems reviewed & are unremarkable except as noted in HPI and below Patient History <Kelley Vasquez PA-C - Last Filed: 06/27/25 14:01> Social History household members: spouse alcohol intake frequency: a few times a month Exam <Kelley Vasquez PA-C - Last Filed: 06/27/25 14:01> Narrative Exam Narrative: GENERAL: 79 year old patient appears stated age. Well-developed patient, in no acute distress. HEAD: Atraumatic. Normocephalic. EYES: PERRL. Extraocular motions intact. No scleral icterus. No injection or drainage. ENT: Nose without bleeding, purulent drainage. NECK: Trachea midline. Cervical ROM intact. No midline cervical tenderness. CARDIOVASCULAR: Regular rate and rhythm. RESPIRATORY: ?Nonlabored respirations. ?Speaking in clear, full sentences. ?Clear to auscultation. GASTROINTESTINAL: Abdomen soft, non-tender, nondistended. Normal BS. EXTREMITIES: No LE edema or tenderness. Lower legs are warm and well perfused. 2+ bilateral radial pulses, no wrist tenderness bilaterally. There is focal tenderness to palpation on the tip of the right olecranon with no deformities, bilateral elbow flexion and extension is intact. BACK: No wounds, bruising or deformities. There is focal midline tenderness to palpation of the spine in roughly the T12/L1 region. Negative straight leg raise bilaterally. NEURO: AOx3. ?Clear speech. ?Moves all 4 extremities appropriately. Sensation intact to light touch on bilateral lower extremities. Plantar/dorsiflexion strength 5/5 bilaterally. SKIN: No rash or erythema of visible areas Initial Vital Signs Initial Vital Signs: Vital Signs Temperature 98.2 F 06/27/25 10:32 Pulse Rate 75 06/27/25 10:32 Respiratory Rate 17 06/27/25 10:32 Blood Pressure 125/64 06/27/25 10:32 Pulse Oximetry 96 06/27/25 10:32 Oxygen Delivery Method Room Air 06/27/25 10:32 <Lena Marc DO - Last Filed: 06/28/25 08:48> Initial Vital Signs Initial Vital Signs: Vital Signs Temperature 98.2 F 06/27/25 10:32 Pulse Rate 75 06/27/25 10:32 Respiratory Rate 17 06/27/25 10:32 Blood Pressure 125/64 06/27/25 10:32 Pulse Oximetry 96 06/27/25 10:32 Oxygen Delivery Method Room Air 06/27/25 10:32 Course <Kelley Vasquez PA-C - Last Filed: 06/27/25 14:01> Orders Ordered: Discontinued Medications Cyclobenzaprine HCl (Cyclobenzaprine 10 Mg Tablet) 10 mg PO NOW ONE Stop: 06/27/25 11:08 Last Admin: 06/27/25 11:39 Dose: 10 mg Documented By: LACY Ibuprofen (Ibuprofen 400 Mg Tablet) 400 mg PO NOW ONE Stop: 06/27/25 11:08 Last Admin: 06/27/25 11:38 Dose: 400 mg Documented By: LACY Vital Signs Vital signs: Vital Signs - 8 hr 06/27/25 10:32 06/27/25 13:49 Temperature 98.2 F Pulse Rate 75 61 Respiratory Rate 17 18 Blood Pressure 125/64 167/77 H Pulse Oximetry 96 98 Oxygen Delivery Method Room Air Room Air <Lena Marc DO - Last Filed: 06/28/25 08:48> Orders Ordered: Discontinued Medications Cyclobenzaprine HCl (Cyclobenzaprine 10 Mg Tablet) 10 mg PO NOW ONE Stop: 06/27/25 11:08 Last Admin: 06/27/25 11:39 Dose: 10 mg Documented By: LACY Ibuprofen (Ibuprofen 400 Mg Tablet) 400 mg PO NOW ONE Stop: 06/27/25 11:08 Last Admin: 06/27/25 11:38 Dose: 400 mg Documented By: LACY Vital Signs Vital signs: Vital Signs - 8 hr 06/27/25 10:32 06/27/25 13:49 Temperature 98.2 F Pulse Rate 75 61 Respiratory Rate 17 18 Blood Pressure 125/64 167/77 H Pulse Oximetry 96 98 Oxygen Delivery Method Room Air Room Air MDM - Back Pain/Injury <Kelley Vasquez PA-C - Last Filed: 06/27/25 14:01> Medical Records Attestation: I reviewed the patient's medical records. Lab Data Labs: Urine Dip Bedside Urine Glucose Negative Bedside Urine Bilirubin - Negative Bedside Urine Ketone - Negative Urine Specific Roulette 1.015 Bedside Urine Occult Blood - Negative Bedside Urine pH 6.0 Bedside Urine Protein - Negative Bedside Urine Urobilinogen - Negative Bedside Urine Nitrite - Negative Bedside Urine Leukocytes - Negative Esterase Imaging Data Right Elbow X-Ray: Radiologist's Impression: PROCEDURE: XR ELBOW RT MIN 3V INDICATIONS: fall; right elbow pain TECHNIQUE: 3 views of the elbow were acquired. COMPARISON: None. FINDINGS: Bones: No fractures or dislocations. No suspicious bony lesions. Soft tissues: No elbow joint effusion. No suspicious soft tissue calcifications. IMPRESSION: No acute bony abnormality or significant joint effusion. Dictated by: Eun Cottrell M.D. on 06/27/2025 at 11:52 Approved by: uEn Cottrell M.D. on 06/27/2025 at 11:[address]: Radiologist's Impression: PROCEDURE: CT THORACIC SPINE WO CON INDICATIONS: fall; midline back pain TECHNIQUE: Noncontrast 3 mm thick sections acquired through the region of interest in the thoracic spine. Sagittal and coronal reformats were then constructed. For radiation dose reduction, the following was used: automated exposure control. COMPARISON: None. FINDINGS: Image quality: Excellent. Bones: Mild overall kyphosis without acute subluxation. Vertebroplasty cement within T10 supporting the mild compression fracture. No acute vertebral body fractures. Moderate right anterolateral endplate spurring and bridging osteophytosis in the mid thoracic spine. The visible rib arcs are intact. Soft tissues: No paravertebral masses or hematomas. Visualized posteromedial lungs appear clear. IMPRESSION: No CT evidence of acute thoracic spine fracture. Evidence of prior mild T10 compression fracture and vertebroplasty cement. Dictated by: Eun Cottrell M.D. on 06/27/2025 at 12:50 Approved by: Eun Cottrell M.D. on 06/27/2025 at 12:[address]: Radiologist's Impression: PROCEDURE: CT LUMBAR SPINE WO CON INDICATIONS: fall; midline back pain TECHNIQUE: Noncontrast 3 mm thick sections acquired from the T12 level to the sacrum. Sagittal and coronal reformats were constructed. For radiation dose reduction, the following was used: automated exposure control. COMPARISON: [facility], CT, CT ABDOMEN PELVIS W CON, 05/04/2025, 9:06. FINDINGS: Image quality: Excellent. Bones: No acute lumbar vertebral fractures. There is trace anterolisthesis L4-5. No pathologic subluxation. Degenerative sclerotic and cystic endplate changes along the right aspect at the L4-5 level and endplate spurring anteriorly and laterally at L5-S1. Severe facet arthropathy at L4-5 and mildly at L3-4 and L5-S1. No visible sacral fractures. Soft tissues: Moderately decreased disc space at L5-S1 and mildly decreased disc space L4-5 with chronic appearing hypertrophic degenerative changes in the posterior elements and broad-based posterior disc bulge. No retroperitoneal masses or hematomas. Visualized aorta is normal in caliber. Surgical changes of cholecystectomy. IMPRESSION: No CT evidence of acute lumbar spine fracture or subluxation. 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 No acute progression. Dictated by: Eun Cottrell M.D. on 06/27/2025 at 12:20 Approved by: Eun Cottrell M.D. on 06/27/2025 at 12:50 MDM Narrative Medical decision making narrative: 79-year-old female with a past medical history of [id number]-sgarxvnlr type 2 diabetes, HTN, HLD, prior T10 compression fracture, hysterectomy, cholecystectomy who presents to the emergency department with her for mid back pain and right elbow pain after a trip and fall that occurred 1 week ago. Differential diagnosis includes but is not limited to thoracic compression fracture, lumbar compression fracture, muscle sprain, strain, arthritis, right elbow strain, contusion, fracture, etc. On exam the patient is in no acute distress, nontoxic-appearing, all vital signs within normal limits. Her extremities are neurovascularly intact. She did not hit her head. She has not on blood thinners. She has no abdominal pain. No bowel or bladder incontinence, saddle anesthesia, or weakness. Given patient's age and history of fall now with midline tenderness we will obtain CT imaging of thoracic and lumbar spine. We will treat pain with ibuprofen and Flexeril as these have been very helpful for the patient. We will also obtain x-ray imaging of right elbow due to direct tenderness. Point of care urinalysis negative, no signs of infection. Right elbow x-ray negative, reveals no acute bony abnormality or significant joint effusion. CT lumbar spine reveals no evidence of acute lumbar spine fracture or subluxation, there are chronic degenerative changes. CT thoracic reveals no evidence of acute thoracic spine fracture there is evidence of the prior mild T10 compression fracture and vertebroplasty cement. Printed and discussed all imaging results with the patient. Discussed degenerative changes, no signs of fracture at this time, concern for muscle strain/soft tissue injury. Discussed supportive care, rest, heat therapy, ice therapy, avoiding bed rest, avoiding heavy lifting or twisting. Patient requested a few doses of Vicodin as she reports this helped with the pain significantly in the past, encouraged to use ibuprofen and Flexeril for mild pain and Vicodin only as needed for severe breakthrough pain. Discussed follow up with the PCP, ED return precautions. Patient verbalized understanding of all information and is agreeable with the plan. She is able to ambulate independently. All questions answered, she is stable for discharge home. <Lena Marc, - Last Filed: 06/28/25 08:48> Lab Data Labs: Urine Dip Bedside Urine Glucose Negative Bedside Urine Bilirubin - Negative Bedside Urine Ketone - Negative Urine Specific Roulette 1.015 Bedside Urine Occult Blood - Negative Bedside Urine pH 6.0 Bedside Urine Protein - Negative Bedside Urine Urobilinogen - Negative Bedside Urine Nitrite - Negative Bedside Urine Leukocytes - Negative Esterase Discharge Plan Departure Patient Disposition: Home Clinical Impression: Fall on same level from tripping Contusion of elbow, right Qualifiers: Encounter type: initial encounter Qualified Code(s): S50.01XA - Contusion of right elbow, initial encounter Strain of mid-back Qualifiers: Encounter type: initial encounter Qualified Code(s): S29.012A - Strain of muscle and tendon of back wall of thorax, initial encounter DDD (degenerative disc disease), lumbar Qualifiers: Disc-related pain type: discogenic back pain only Qualified Code(s): M51.360 - Other intervertebral disc degeneration, lumbar region with discogenic back pain only Instructions: DI for Low Back Pain, DI for Muscle Strain Activity Restrictions/Additional Instructions: Dear Ms. Alonso, Thank you for coming to the emergency department. Today you were evaluated for back pain and right elbow pain after a fall. Your imaging did not reveal any broken bones. Your imaging did reveal degenerative changes of the back. I suspect the fall caused injury to the muscles of your back which is now exacerbating her underlying degenerative changes. Please rest, use heat and ice therapy as needed in addition to ihva-bsl-okytfjf medication such as ibuprofen and Tylenol. You have also been prescribed a muscle relaxer, Flexeril, and opiate pain medication, Vicodin. Please be cautious when using these medications, and do not take them together as it can make you very drowsy. Please take Ibuprofen (Motrin/Advil) or Acetaminophen (Tylenol) for pain. These are available over the counter. You may take Ibuprofen 600 mg every 8 hours with food for pain. You may also take Acetaminophen 650 mg every 4-6 hours for pain. Do not exceed 3000 mg of Tylenol a day as this can cause liver damage. Do not drink alcohol with either of these medications. You have been prescribed a short course of narcotic medications. These are potentially dangerous and addictive medications that should be used carefully. While on these medications you cannot drive or operate heavy machinery. Additionally, you cannot sign legal documents or perform any duties such as this. Many people get constipated on narcotic medications so it would be advisable to discuss stool softeners with the pharmacist when you olive picker your prescription. Please understand that we cannot provide further refills of narcotics or controlled substances through the ED and your pain management will need to be through your Primary Care Provider Please follow up with your primary care doctor within the next 2-3 days for ER follow-up. (If you do not have a PCP you can call [phone]. ?to schedule an appointment with an [facility] Primary Care Provider) IF YOU DEVELOP ANY NEW OR WORSENING SYMPTOMS, RETURN TO THE ER! Please read the attached instructions, they highlight more specific treatments and interventions for you at home. Thank you for letting me participate in your care, Kelley Vasquez PA-C Prescriptions: New hydrocodone-acetaminophen 5-325 mg tablet 1 tab PO Q4-6H PRN (Reason: pain) Qty: 10 0RF cyclobenzaprine 5 mg tablet 5 mg PO TID PRN (Reason: muscle spasm) Qty: 10 0RF No Action gabapentin [Neurontin] 300 MG capsule 300 mg PO TID Qty: 0 [DIABETES] Qty: 0 [HIGH CHOLESTEROL ] Qty: 0 [HTN MEDICATION] Qty: 0 methocarbamol 500 MG tablet 500 mg PO QIDP PRN (Reason: pain) Qty: 14 0RF ketorolac 10 MG tablet 10 mg PO Q6HP PRN (Reason: pain) Qty: 15 0RF cyclobenzaprine 10 MG tablet 10 mg PO Q8HP PRN (Reason: muscle spasm) Qty: 20 0RF ketorolac 10 MG tablet 10 mg PO Q8HP PRN (Reason: pain) Qty: 20 0RF clonidine HCl 0.1 mg tablet 0.1 mg PO TID PRN (Reason: hypertensive emergency) Qty: 30 0RF hydrocodone-acetaminophen 5 MG/325 MG tablet 1 - 2 tab PO Q6H PRN (Reason: pain) atorvastatin 10 mg tablet 10 mg PO DAILY metoprolol succinate 50 mg tablet extended release 24 hr 50 mg PO DAILY amitriptyline 50 mg tablet 50 mg PO ONCE PM valsartan 320 mg tablet 320 mg PO DAILY omeprazole 20 mg capsule,delayed release(DR/EC) 20 mg PO BID oxycodone 5 mg tablet PO Janumet 50-1,000 mg tablet 1 tab PO BID Referrals: Zee Diego PA-C [Primary Care Provider, Medical] Stand Alone Forms: Patient Portal/API ED Sign-out <Lena Marc DO - Last Filed: 06/28/25 08:48> Cosign ED Attending Cosignature Attestation: I was available for consultation.
--- NOTE | 2025-06-27 11:07 | DI.CT.S_ITS ---
PROCEDURE: CT LUMBAR SPINE WO CON INDICATIONS: fall; midline back pain TECHNIQUE: Noncontrast 3 mm thick sections acquired from the T12 level to the sacrum. Sagittal and coronal reformats were constructed. For radiation dose reduction, the following was used: automated exposure control. COMPARISON: [facility], CT, CT ABDOMEN PELVIS W CON, 05/04/2025, 9:06. FINDINGS: Image quality: Excellent. Bones: No acute lumbar vertebral fractures. There is trace anterolisthesis L4- 5. No pathologic subluxation. Degenerative sclerotic and cystic endplate changes along the right aspect at the L4-5 level and endplate spurring anteriorly and laterally at L5-S1. Severe facet arthropathy at L4-5 and mildly at L3-4 and L5-S1. No visible sacral fractures. Soft tissues: Moderately decreased disc space at L5-S1 and mildly decreased disc space L4-5 with chronic appearing hypertrophic degenerative changes in the posterior elements and broad-based posterior disc bulge. No retroperitoneal masses or hematomas. Visualized aorta is normal in caliber. Surgical changes of cholecystectomy. IMPRESSION: No CT evidence of acute lumbar spine fracture or subluxation. 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 No acute progression. Dictated by: Eun Cottrell M.D. on 06/27/2025 at 12:20 Approved by: Eun Cottrell M.D. on 06/27/2025 at 12:50
--- NOTE | 2025-06-27 11:07 | DI.RAD.S_ITS ---
PROCEDURE: XR ELBOW RT MIN 3V INDICATIONS: fall; right elbow pain TECHNIQUE: 3 views of the elbow were acquired. COMPARISON: None. FINDINGS: Bones: No fractures or dislocations. No suspicious bony lesions. Soft tissues: No elbow joint effusion. No suspicious soft tissue calcifications. IMPRESSION: No acute bony abnormality or significant joint effusion. Dictated by: Eun Cottrell M.D. on 06/27/2025 at 11:52 Approved by: Eun Cottrell M.D. on 06/27/2025 at 11:53
--- NOTE | 2025-06-27 11:07 | DI.CT.S_ITS ---
PROCEDURE: CT THORACIC SPINE WO CON INDICATIONS: fall; midline back pain TECHNIQUE: Noncontrast 3 mm thick sections acquired through the region of interest in the thoracic spine. Sagittal and coronal reformats were then constructed. For radiation dose reduction, the following was used: automated exposure control. COMPARISON: None. FINDINGS: Image quality: Excellent. Bones: Mild overall kyphosis without acute subluxation. Vertebroplasty cement within T10 supporting the mild compression fracture. No acute vertebral body fractures. Moderate right anterolateral endplate spurring and bridging osteophytosis in the mid thoracic spine. The visible rib arcs are intact. Soft tissues: No paravertebral masses or hematomas. Visualized posteromedial lungs appear clear. IMPRESSION: No CT evidence of acute thoracic spine fracture. Evidence of prior mild T10 compression fracture and vertebroplasty cement. Dictated by: Eun Cottrell M.D. on 06/27/2025 at 12:50 Approved by: Eun Cottrell M.D. on 06/27/2025 at 12:58
[2025-06-27] MEDS: IBUPROFEN 400 MG TABLET PO (11:38)
[2025-06-27] MEDS: CYCLOBENZAPRINE 10 MG TABLET PO (11:39)
[2025-06-27 13:49] VITALS: BP 167/77; PULSE 61; RESP 18; O2SAT 98
== END 2025-06-27 13:42 | disposition home or self-care (01) ==
PROVIDERS: Emergency Provider Physician Assistant; PCP Physician Assistant
DX: S50.01XA Contusion of right elbow, initial encounter (principal); S29.012A Strain of muscle and tendon of back wall of thorax, initial encounter; M51.360 Other intervertebral disc degeneration, lumbar region with discogenic back pain only; W01.0XXA Fall on same level from slipping, tripping and stumbling without subsequent striking against object, initial encounter; E11.9 Type 2 diabetes mellitus without complications
CPT/HCPCS: 72128; 72131; 73080; 81003; 99283; 99284

== ENCOUNTER 2025-07-26 09:47 | Day surgery (SDC) | payer MEDICARE, OTHER, SELFPAY ==
[2025-05-03 22:45] VITALS: BMI 29.7
--- NOTE | 2025-07-26 | PATH_ITS ---
[facility] Accession Number: [id number] No. of containers..02 Tissue . 01 Material submitted: . PART A: stomach - ANTRAL PART B: rectum - RECTAL POLYP . 01 Diagnosis: A. STOMACH, ANTRUM, BIOPSY: Antral mucosa with moderate reactive gastropathy, mild chronic inflammation, and rare active inflammation. Negative for Helicobacter organisms by IHC stain. Negative for intestinal metaplasia by alcian blue. Newgative for dysplasia, and malignancy. . B. RECTUM: Tubular adenoma. MRV 08/05/2025 1600 Local . 01 Comment: Immunohistochemistry for Helicobacter organisms is performed with adequate controls on block A1 and is negative. A special stain for alcian blue is also performed on block A1 and is negative for intestinal metaplasia. . * This test was developed and the performance characteristics were validated by [facility]. It has not been cleared or approved by the [place]. Food and Drug Administration. . 01 Electronically signed: . Maria C Santo DO, Pathologist NPI- [id number] . 01 Gross description: . Received two formalin filled containers, both labeled with the patient's name. . A. In a container labeled 1. Antral, the specimen consists of two fragments of atkins-long, soft tissue which range in size from 0.2 x 0.2 x 0.2 cm to 0.5 x 0.2 x 0.2 cm. All fragments are totally submitted in cassette A. B. In a container labeled rectal polyp, the specimen consists of one fragment of long, soft tissue which measures 0.2 x 0.2 x 0.2 cm. The specimen is totally submitted in cassette B. ([facility] [place]:[id number]) /MRV 08/02/2025 0411 Local . 01 Pathologist provided ICD-10: D50.9 . 01 CPT . 202124, [id number], [id number], [id number] Specimen Comment: A courtesy copy of this report has been sent to [facility] Pathology Performed at: [address] [id number] MD Ladarius Otero MD Phone: [phone]
--- NOTE | 2025-07-26 06:27 | PM.PREOP ---
Pre-operative Note Interval Note History & Physical reviewed/Exam performed by Physician: Yes Changes to H&P: No ASA Class (for procedural sedation): II
[2025-07-26 10:23] VITALS: BP 179/87; PULSE 85; RESP 16; TEMP 36.6; O2SAT 99
[2025-07-26] MEDS: LACTATED RINGERS 1,000 ML 42 ML IV (10:44)
--- NOTE | 2025-07-26 12:02 | PM.OP.EC ---
Operative Date/Time/Diagnoses Date of procedure: 07/26/25 Time of procedure: 12:59 Pre-op diagnosis: Iron deficiency anemia Post-op diagnosis: other (Schatzki's ring (not stenotic), small hiatal hernia without esophagitis, moderate antral gastritis with clot (likely source of anemia), hyperplastic polyps in rectum ) Procedure & Clinicians Study performed: EGD, colonoscopy with biopsy Same procedure(s) as scheduled: Yes Indications: 79yo F with iron deficiency anemia Surgeon: Paxton Dubose Anesthesia Type: MAC +/- Procedure Notes SCOAP/Timeout: Performed Procedure in detail: EGD Informed consent was obtained. The procedure, its risks, benefits, and alternatives were discussed. Patient understood and agreed to proceed. The patient was placed in the left lateral decubitus position with head elevated. Sedation given per anesthesia. The video endoscope was inserted into the oropharynx and guided under direct vision into the esophagus, stomach, and duodenum which were carefully examined. The scope was retroflexed to examine the hiatus and gastroesophageal junction. Antral biopsies were obtained for Helicobacter pylori. The patient tolerated the procedure very well. There were no apparent complications. Significant EGD findings: Z-line noted at: 37cm Small 2cm hiatal hernia without esophagitis Schatzki's ring, wide open, not stenotic, dilation not indicated Duodenum normal Moderate gastritis with old clot indicative of recent bleeding, most likely source of iron deficiency anemia on endoscopy today, biopsies taken for H pylori No ulcers, strictures, mass Colonoscopy Patient placed in left lateral recumbent position. Time out was performed. Procedural sedation was administered by anesthesia. Examination began with a thorough inspection of the perianal area. There was no evidence of fissures, fistulae, external hemorrhoids or cutaneous malignancy. The colonoscope was then placed into the rectum and the lumen was insufflated with carbon dioxide. The scope was carefully advanced forward. Ultimately the cecum was intubated and confirmed by identification of the ileocecal valve, the appendiceal orifice and the confluence of the taenia. The scope was then slowly withdrawn examining the colon thoroughly in all directions. In the rectum, retroflexion of the scope was performed for inspection of the distal rectum and anal canal. ?Significant colonoscopy findings: ?1. Quality of the preparation-good, [place] 2-3, improved with irrigation/suction ?2. Hyperplastic rectal polyps, one 2mm polyp biopsied for sampling 3. No obvious source of iron deficiency anemia in colon Scope withdrawal time: 7 minutes Findings: gastritis, hiatal hernia and polyp Specimen(s): other (biopsies) Complications: none Impression: Schatzki's ring Hiatal hernia, small, 2cm Moderate antral gastritis with clot, most likely source of iron deficiency anemia Rectal hyperplastic polyp Post-procedure Recommendations: Colonscopy in 10 years Plan for aftercare: PACU then home Follow up: as needed Disposition: PACU
[2025-07-26 12:55] VITALS: BP 123/66; PULSE 82; RESP 12; TEMP 36.1; O2SAT 98
[2025-07-26 13:01] VITALS: BP 146/73; PULSE 90; RESP 24; O2SAT 95
[2025-07-26 13:07] VITALS: BP 160/77; PULSE 100; RESP 28; TEMP 36.1; O2SAT 97
== END 2025-07-26 13:49 | disposition home or self-care (01) ==
PROVIDERS: PCP Physician Assistant; Referring Provider Surgery; Visit Provider Surgery
PROC: 0DJ08ZZ Inspection of Upper Intestinal Tract, Via Natural or Artificial Opening Endoscopic (ICD-10-PCS; CPT 43235; principal; 2025-07-26 11:15)
PROC: 0DJD8ZZ Inspection of Lower Intestinal Tract, Via Natural or Artificial Opening Endoscopic (ICD-10-PCS; CPT 45378; 2025-07-26 11:15)
DX: D50.9 Iron deficiency anemia, unspecified (principal); K22.2 Esophageal obstruction; K44.9 Diaphragmatic hernia without obstruction or gangrene; K29.50 Unspecified chronic gastritis without bleeding; K31.89 Other diseases of stomach and duodenum; D12.8 Benign neoplasm of rectum
CPT/HCPCS: 43235; 45380; 82962; J2704; J7120